=== PATIENT | female | born 1980 | race Caucasian/White ===

== ENCOUNTER 2019-07-14 11:52 | Emergency (ER) | payer SELFPAY ==
[2019-07-14] MEDS ORDERED: Ondansetron 4 MG/2 ML SDV IVPUSH ONE (12:15)
[2019-07-14] MEDS ORDERED: HYDROmorphone 1 MG/ML Syringe IVPUSH ONE (12:15)
[2019-07-14] MEDS ORDERED: Dextrose 5%-0.9% NaCl 1,000 ML IV SCH (12:15)
--- NOTE | 2019-07-14 12:20 | EDM.PDOC ---
ED HPI GENERAL MEDICAL PROBLEM - General Chief Complaint: ENT Problem Stated Complaint: EAR PAIN AND PRESSURE Time Seen by Provider: 07/14/19 12:15 Source of Information: Reports: Patient History Limitations: Reports: No Limitations - History of Present Illness INITIAL COMMENTS - FREE TEXT/NARRATIVE: 39-year-old female presents to the ED with severe right ear pain. She reports that she had 4 sets of tubes as a child. 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 She's had a portion of her mastoid bone removed as well. She's been having pain in the right ear for about 5 days. At work this morning when she leaned over she felt a pop and some serous purulent drainage foul-smelling come from the right ear. HEENT is now radiating into the mastoid process preauricular area and down the right sagrario-face along her mandible and inferior to her right eye. It also is painful when she clenches her teeth. Last surgery on her ear was in 2010. No problems on the left side. Onset: Sudden (Sudden worsening of the pain this morning with a pop sensation in her right eardrum or ear and then purulent foul-smelling drainage from the right ear.), Gradual (Right ear pain pressure for the last 5 days and tolerating Motrin and Tylenol with control.) Onset Date: 07/09/19 Duration: Day(s):, Constant, Getting Worse Location: Reports: Face (Right ear pain right) Quality: Reports: Ache ( pre-and postauricular pain radiating into the right sagrario-face.), Throbbing, Other (Associated vertigo feels like she is on a boat in the water a motion sickness) Severity: Severe (Current pain 8 out of 10. Such with nausea) Improves with: Reports: None Worsens with: Reports: Movement Context: Reports: Other (Chronic problems with right ear pain and recurrent cholesteatomas.). Denies: Activity, Exercise, Lifting, Sick Contact, Trauma Associated Symptoms: Reports: Headaches, Loss of Appetite, Nausea/Vomiting, Other (Vertigo symptoms). 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 (Motrin not helping today.) Right Ear Pain Score (Numeric/FACES): 9 - Related Data Allergies Allergy/AdvReac Type Severity Reaction Status Date / Time ketorolac [From Toradol] Allergy Hives Verified 07/14/19 12:04 metoclopramide [From Reglan] Allergy Anxiety Verified 07/14/19 12:04 morphine Allergy Itching Verified 07/14/19 12:04 prochlorperazine Allergy Hives Verified 07/14/19 12:04 [From Compazine] Home Meds: Home Meds Ciprofloxacin HCl [Cipro] 500 mg PO BID #20 tablet 07/14/19 [Rx] Citalopram Hydrobromide [Celexa] 20 mg PO DAILY 07/14/19 [History] Neomyc/Colist/Hydrocort/Thonzn [Cortisporin-Tc Ear Suspension] 10 ml OT ASDIRECTED #1 bottle 07/14/19 [Rx] oxyCODONE HCl/Acetaminophen [Percocet 5-325 mg Tablet] 1 - 2 each PO Q4H PRN # 20 tablet 07/14/19 [Rx] Past Medical History HEENT History: Reports: Otitis Media (Recurrent otitis media as a child requiring 4 sets of tympanostomy tubes. Has developed complications with a cholesteatoma formation or multiple cholesteatomas and has had 11 separate surgeries to try and resect cholesteatomas. Last surgery was in 2010. 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 Harsh vertigo symptoms related to surgery on the right ear and cholesteatoma invasion of the cochlea.) Psychiatric History: Reports: Depression - Past Surgical History HEENT Surgical History: Reports: Myringotomy w Tube(s) Other HEENT Surgeries/Procedures: cholesteatoma has had 11 surgeries Social & Family History - Tobacco Use Smoking Status *Q: Former Smoker Used Tobacco, but Quit: Yes Month/Year Tobacco Last Used: 2017 - Caffeine Use Caffeine Use: Reports: None - Recreational Drug Use Recreational Drug Use: No - Living Situation & Occupation Occupation: Employed ED ROS ENT - Review of Systems Review Of Systems: See Below Constitutional: Reports: Decreased Appetite. Denies: Fever, Chills, Malaise, Weakness, Fatigue, Weight Loss HEENT: Reports: Ear Discharge (Severe right ear pain both pre-and postauricular and to touch her ear lobe. Urged from the ear this morning foul-smelling), Ear Pain Respiratory: Reports: No Symptoms Cardiovascular: Reports: No Symptoms Endocrine: Reports: Fatigue GI/Abdominal: Reports: Nausea (Due to vertigo symptoms.) Musculoskeletal: Reports: No Symptoms Skin: Reports: No Symptoms Neurological: Reports: Dizziness (Vertigo symptoms associated with the right ear pain this morning.) Psychiatric: Reports: No Symptoms Hematologic/Lymphatic: Reports: No Symptoms Immunologic: Reports: No Symptoms ED EXAM, ENT - Physical Exam Exam: See Below Exam Limited By: No Limitations General Appearance: Alert, WD/WN, Moderate Distress, Other (Vital signs are all stable. BP is 10/27/68.) Eye Exam: Bilateral Eye: Normal Inspection (No nystagmus.) Ears: Other (Examination was confined to her right ear. Is exquisitely tender to touch and to tug on the earlobe to open it up so that I could see portions of the tympanic membrane. I could see approximate 50% of the tympanic membrane which appeared to be looking normal. Was no blood or obvious fluid in the ear canal. Obvious swelling of the floor and anterior wall of the canal. She has had multiple surgical scars posterior to the right ear and deformity of the right ear due to surgeries. Pain limits ability to visualize the entire tympanic membrane.) Mouth/Throat: Normal Inspection, Normal Gums, Normal Lips, Other (No signs of any dental infection. Does have marked pain on palpation of the right temporomandibular joint.) Head: Atraumatic, Normocephalic, Other (Has obvious deformity of her right ear I Fanny flower like ear from extensive scarring. Significant pain to palpation over the mastoid process and over the temporomandibular joint. No pre-or postauricular adenopathy appreciated.) Neck: Normal Inspection, Supple, Non-Tender, Full Range of Motion. No: Lymphadenopathy (L) Respiratory/Chest: No Respiratory Distress, Lungs Clear, Normal Breath Sounds, No Accessory Muscle Use Cardiovascular: Normal Peripheral Pulses, Regular Rate, Rhythm, No Edema, No Gallop, No Murmur, No Rub Course - Vital Signs Last Recorded V/S: Last Vital Signs Temp 36.7 C 07/14/19 12:05 Pulse 82 07/14/19 12:05 Resp 14 07/14/19 12:05 BP 107/69 07/14/19 12:05 Pulse Ox 98 07/14/19 12:05 - Orders/Labs/Meds Orders: Active Orders 24 hr Category Date Time Status Dextrose 5%-0.9% NaCl [Dextrose 5%-Normal Saline] 1,000 Med 07/14/19 12:15 Active ml IV ASDIRECTED Medication Orders Dextrose/Sodium Chloride (Dextrose 5%-Normal Saline) 1,000 mls @ 999 mls/hr IV ASDIRECTED DEDRA Last Admin: 07/14/19 12:29 Dose: 999 mls/hr Meds: Medications Generic Name Dose Route Start Last Admin Trade Name Freq PRN Reason Stop Dose Admin Dextrose/Sodium Chloride 1,000 mls @ 999 mls/hr 07/14/19 12:15 07/14/19 12:29 Dextrose 5%-Normal Saline IV 999 mls/hr ASDIRECTED DEDRA Administration Discontinued Medications Generic Name Dose Route Start Last Admin Trade Name Freq PRN Reason Stop Dose Admin Hydromorphone HCl 1 mg 07/14/19 12:15 07/14/19 12:30 Dilaudid IVPUSH 07/14/19 12:16 1 mg ONETIME ONE Administration Ondansetron HCl 4 mg 07/14/19 12:15 07/14/19 12:29 Zofran IVPUSH 07/14/19 12:16 4 mg ONETIME ONE Administration - Radiology Interpretation Free Text/Narrative:: 39-year-old female presents the emergency room with severe right ear pain and she's been having pain in the right ear for about 5 days controlled with Tylenol and Motrin. This morning while at work it seemed to pop and release a discharge that was foul-smelling. No blood noted. Her hearing is poor and aside from multiple previous surgeries. She's had for tympanostomy tube insertions as a child and then complicated by multiple cholesteatomas with 11 different surgeries because of this. She presents with an exquisitely tender ear canal with swelling of the floor and anterior wall which partially obscures the tympanic membrane which appears to be normal on limited exam. Due to pain referred to the mastoid and right sagrario-face and going to have CT of her head performed so that I can visualize the mastoid process. Shouldn't is nauseated this point time doesn't believe she can keep down oral meds. IV will be started D5 normal saline at open. Given Dilaudid 1 mg IV and Zofran 4 mg IV. There was nothing to culture in the right ear canal. - Re-Assessments/Exams Free Text/Narrative Re-Assessment/Exam: 07/14/19 12:52 CT of the head has been completed. There is no intracranial mass or midline shift. She has had a previous right-sided mastoidectomy and the bone has been resected overlying the mastoid process ie. bone window. Most of the bone has been resected from the inside aspect of the mastoid process presumably due to infection. As infection are evident in the mastoid process. There is a soft tissue density in the middle ear canal on the right side. Unclear what this represents. It is an atypical area does not represent swelling. At this point time she appears to have acute external otitis infection. Treatment will be with Cortisporin eardrops. 2 drops to the right ear canal every 2 hours for the next 36 hours and then 2 drops every 4 hours for 8 more days to clear up infection. Percocet tabs 5/3/25 milligrams one or 2 every 4-6 hours for pain relief until the inflammation swelling starts to resolve which will look to be 2-3 days. 16 tablets provided. She will also be placed on Cipro 500 mg twice daily for the next 10 days to clear up any potential pseudomonas infection in the ear canal. She is weaning off her citalopram at present and therefore should not represent a contraindication. No up at [facility]. Referred her to Dr. Jennie Barbour. Full bladder she can set up appointment with visiting ear nose and throat surgeons to come up from [place]. Departure - Departure Time of Disposition: 13:23 Disposition: Home, Self-Care 01 Condition: Fair Clinical Impression: Otitis externa Qualifiers: Otitis externa type: unspecified type Chronicity: acute Laterality: right Qualified Code(s): H60.501 - Unspecified acute noninfective otitis externa, right ear - Discharge Information *PRESCRIPTION DRUG MONITORING PROGRAM REVIEWED*: Not Applicable *COPY OF PRESCRIPTION DRUG MONITORING REPORT IN PATIENT JOSE DAVID: Not Applicable Prescriptions: Ciprofloxacin HCl [Cipro] 500 mg PO BID #20 tablet Neomyc/Colist/Hydrocort/Thonzn [Cortisporin-Tc Ear Suspension] 10 ml OT ASDIRECTED #1 bottle oxyCODONE HCl/Acetaminophen [Percocet 5-325 mg Tablet] 1 - 2 each PO Q4H PRN # 20 tablet PRN Reason: pain relief. Instructions: Ear Drops, Adult Referrals: PCP,None [Primary Care Provider] - Forms: ED Department Discharge, ED Return to Work/School Form Additional Instructions: Evaluation the emergency room today in regards to 5 day history of right ear pain gradually worsening. Intensified this morning with a feeling of drainage from the right ear and increased pain throughout the right side of your face and posterior and anterior to the right ear. No problems with the right ear over the years with recurrence of cholesteatoma. I could only see about 50% of the tympanic membrane today and it appears normal. There is no doubt that the anterior wall in the floor of the ear canal are markedly inflamed I otitis externa. Of the area reveals no signs of infection in the mastoid process or the middle ear cavity. You're given initial dose of pain medication in the ED with Dilaudid 1 mg and Zofran 4 mg for nausea relief. Treatment at home is Cortisporin TC optic drops 2 drops to the right ear every 2 hours for the next 36 hours and then 2 drops to the right ear every 4 hours for 8 days to clear up infection in the ear canal. Should lie on her left side for about 5 minutes after placing the drops in the ear. Pain medication is to be Percocet tabs 5/ 325 mg one or 2 every 4-6 hours needed for pain relief until the inflammation and infection settles down. Antibiotic is to be Cipro 500 mg twice daily for the next 10 days to clear up infection as well. Suggest taking her citalopram medication every other day instead of daily while on the Cipro medication possible drug interaction. Expect marked improvement over the next 48-72 hours. Try keep all water. When showering. Suggest cutting back and in the ear and canal in and pull it out as soon as the shower is done. Follow-up is advised with her personal care provider or ear nose and throat doctor in 10-12 days time. At this time since I cannot visualize the tympanic membrane totally a cannot 100% rule out recurrence of cholesteatoma although this is certainly not evident on CT exam today. Suggest arranging follow-up with primary care provider. Suggest Dr. Jennie Barbour--phone number to make an appointment is [phone]. - My Orders Last 24 Hours: My Active Orders 07/14/19 12:15 Dextrose 5%-0.9% NaCl [Dextrose 5%-Normal Saline] 1,000 ml IV ASDIRECTED - Assessment/Plan Last 24 Hours: My Active Orders 07/14/19 12:15 Dextrose 5%-0.9% NaCl [Dextrose 5%-Normal Saline] 1,000 ml IV ASDIRECTED
--- NOTE | 2019-07-14 13:10 | CT ---
Head CT Technique: Multiple axial sections through the brain were obtained. Intravenous contrast was not utilized. Comparison: No prior intracranial imaging is available. Findings: Ventricles along with basal cisterns and sulci over the convexities are within normal limits for the patient's age. No abnormal parenchymal densities are seen. No evidence of intracranial hemorrhage. No midline shift or mass effect is seen. Bone window settings were reviewed which show previous mastoid surgery on the right side. Left mastoid sinus is clear. Visualized paranasal sinuses are clear. No acute calvarial abnormality is seen. Soft tissue material within the right external auditory canal is seen most likely due to normal cerumen. Impression: 1. Nothing acute is appreciated on noncontrast head CT exam. 2. Findings of previous right-sided mastoid surgery. Presumed cerumen within the right external auditory canal. Please correlate. Diagnostic code #2
== END 2019-07-14 13:30 | disposition home or self-care (01) ==
LOC: JD.ED 11:52
DX: H60.501 Unspecified acute noninfective otitis externa, right ear (principal); F32.9 Major depressive disorder, single episode, unspecified; Z88.8 Allergy status to other drugs, medicaments and biological substances; Z88.5 Allergy status to narcotic agent; Z79.899 Other long term (current) drug therapy; Z87.891 Personal history of nicotine dependence
CPT/HCPCS: 70450; 96361; 96374; 96375; 99283; J1170; J2405; J7042

== ENCOUNTER 2019-08-20 07:58 | Emergency (ER) | payer SELFPAY ==
[2019-08-20] MEDS ORDERED: FLU Vacc QS2019-20(6MOS+)/PF 60 MCG/0.5 ML SYRINGE IM ONE (08:30)
[2019-08-20] MEDS ORDERED: Ondansetron 4 MG Tab.DIS PO ONE (08:32)
[2019-08-20] MEDS ORDERED: Dexamethasone/Tobramycin 0.1-0.3% Ophth Susp 5 ML Bottle EARRT ONE ×2 (08:32→09:00)
[2019-08-20] MEDS ORDERED: Acetaminophen/oxyCODONE 325-5 MG Tab PO ONE (08:32)
--- NOTE | 2019-08-20 08:32 | EDM.PDOC ---
<Carroll Salinas - Last Filed: 08/20/19 09:12> ED HPI GENERAL MEDICAL PROBLEM - General Chief Complaint: ENT Problem Stated Complaint: SHARP PAIN (FACE),RASH ALL OVER BODY Time Seen by Provider: 08/20/19 08:45 - History of Present Illness INITIAL COMMENTS - FREE TEXT/NARRATIVE: Patient is a 39 year old uninsured female with past history positive for cholesteatoma with multiple surgeries and recent external ear infection managed with ciprofloxacin and cortisporin ear drops on 07/14/19 who presents today for continued right jaw and ear pain. She notes that the pain is worse when biting down, and radiates to the nose and collar bone. At baseline, it is a 8/10, and with chewing it is a "12/10." She describes it as burning, with associated pressure in her eye socket. 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 She also reports daily migraines with nausea and vomiting with photophobia and phonophobia. She has been taking up to 1200 mg of Ibuprofen 3 times a day for her migraines. This does slightly improve her jaw pain as well. She is able to eat soft foods and feels like her appetite is good. She does believe that her pain is getting worse. She has not noticed any draining and reports that the previous foul odor is improved. She denies any changes in her mouth or pain while brushing her teeth, fever or signs of URI. She reports that she has approximately 10% of her hearing in the right ear following her surgeries. She also notes development of a rash mainly on her trunk that appeared following completion of her ciprofloxacin. This rash is puritic and mildly painful. She does not report that it is spreading, although does state that it is "darkening." She also did recently use a tanning bed, and does say that she sometimes gets a rash upon sun exposure, but that it never lasts this long. She has attempted to use hydrocortisone cream, with some improvement. The patient is currently uninsured, and reports that she does not have money for medications. She reports that she did not see ENT as referred after last visit. Patient does report completing the ciprofloxacin, but it is unclear if she was able to obtain the cortisporin otic suspension due to financial constraints. The patient does report that she is planning on reapplying for Medicaid. Onset: Gradual Duration: Week(s): Location: Reports: Head, Face, Radiates to (Nose and collar bone) Quality: Reports: Burning Severity: Severe Improves with: Reports: Medication (Ibuprofen 1200 mg # times a day ) Worsens with: Reports: Eating Associated Symptoms: Reports: Headaches. Denies: Cough, Fever/Chills, Loss of Appetite Right Ear Pain Score (Numeric/FACES): 8 - Related Data Allergies Allergy/AdvReac Type Severity Reaction Status Date / Time ketorolac [From Toradol] Allergy Hives Verified 08/20/19 08:10 metoclopramide [From Reglan] Allergy Anxiety Verified 08/20/19 08:10 morphine Allergy Itching Verified 08/20/19 08:10 prochlorperazine Allergy Hives Verified 08/20/19 08:10 [From Compazine] Home Meds: Home Meds Doxycycline [Vibramycin] 100 mg PO BID #28 cap 08/20/19 [Rx] oxyCODONE HCl/Acetaminophen [Percocet 5-325 mg Tablet] 1 - 2 each PO Q4H PRN # 20 tablet 08/20/19 [Rx] predniSONE 20 mg PO BID #10 tab 08/20/19 [Rx] Past Medical History HEENT History: Reports: Otitis Media, Other (See Below) (Cholesteatoma treated with multiple (11) surgeries, including mastoidectomy. 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: Psychiatric History: Reports: Depression Oncologic (Cancer) History: Reports: Cervix - Past Surgical History HEENT Surgical History: Reports: Myringotomy w Tube(s) Other HEENT Surgeries/Procedures: cholesteatoma has had 11 surgeries Female Surgical History: Reports: Tubal Ligation Social & Family History - Family History Family Medical History: Noncontributory - Tobacco Use Smoking Status *Q: Never Smoker Second Hand Smoke Exposure: No - Caffeine Use Caffeine Use: Reports: Coffee - Recreational Drug Use Recreational Drug Use: No - Living Situation & Occupation Occupation: Employed ED ROS ENT - Review of Systems Review Of Systems: See Below Constitutional: Denies: Fever, Decreased Appetite HEENT: Reports: Ear Pain, Nose Pain. Denies: Ear Discharge, Rhinitis, Throat Pain Respiratory: Denies: Shortness of Breath, Cough Cardiovascular: Denies: Chest Pain GI/Abdominal: Reports: Nausea, Vomiting Skin: Reports: Rash Neurological: Reports: Headache ED EXAM, ENT - Physical Exam Exam: See Below General Appearance: Alert, WD/WN, Other (Vitals at bedside: Temp 97.6, Pulse 71 , Respirations 18, BP 108/78, Pulse Ox 98% on room air ) Ears: Auricular Tenderness, Canal Swelling Nose: Normal Inspection Mouth/Throat: Normal Inspection, Normal Gums, Normal Lips, Normal Oropharynx, Normal Teeth Head: Atraumatic, Normocephalic Neck: Normal Inspection Respiratory/Chest: No Respiratory Distress, No Accessory Muscle Use Skin: Rash (Erythematous macular rash on the anterior trunk) Fron/Back Body Diagram: 1 - Macular erythematous rash Course - Vital Signs Last Recorded V/S: Last Vital Signs Temp 36.4 C 08/20/19 08:05 Pulse 71 08/20/19 08:05 Resp 18 08/20/19 08:05 BP 108/78 08/20/19 08:05 Pulse Ox 98 08/20/19 08:05 - Orders/Labs/Meds Orders: Active Orders 24 hr Category Date Time Status Influenza Vaccine Charge [RC] .DISCHARGE Care 08/20/19 08:15 Active Meds: Medications Discontinued Medications Generic Name Dose Route Start Last Admin Trade Name Maria Esther PRN Reason Stop Dose Admin Dexamethasone 12 mg 08/20/19 08:52 08/20/19 09:14 Dexamethasone PO 08/20/19 08:53 12 mg ONETIME ONE Administration Influenza Virus Vaccine 1 each 08/20/19 08:14 Pharmacy To Dose - Influenza Vaccine IM 08/20/19 08:15 ONETIME ONE Influenza Virus Vaccine 60 mcg 08/20/19 08:30 08/20/19 08:49 Fluzone Quad [id number] Syringe IM 08/20/19 08:31 60 mcg .ONCE ONE Administration Ondansetron HCl 4 mg 08/20/19 08:32 08/20/19 08:48 Zofran Odt PO 08/20/19 08:33 4 mg ONETIME ONE Administration Oxycodone/Acetaminophen 2 tab 08/20/19 08:32 08/20/19 08:48 Percocet 325-5 Mg PO 08/20/19 08:33 2 tab ONETIME ONE Administration Tobramycin/Dexamethasone 0 ml 08/20/19 09:00 08/20/19 09:03 Tobradex Ophth Susp EARRT 08/20/19 09:01 2 drop ONETIME ONE Administration Departure - Departure Disposition: Home, Self-Care 01 Clinical Impression: Drug eruption Diffuse otitis externa, right ear Qualifiers: Chronicity: acute Qualified Code(s): H60.311 - Diffuse otitis externa, right ear - Discharge Information Prescriptions: Doxycycline [Vibramycin] 100 mg PO BID #28 cap oxyCODONE HCl/Acetaminophen [Percocet 5-325 mg Tablet] 1 - 2 each PO Q4H PRN # 20 tablet PRN Reason: pain relief. predniSONE 20 mg PO BID #10 tab Instructions: Ear Drops, Adult, [id number] Referrals: PCP,None [Primary Care Provider] - Forms: ED Department Discharge Additional Instructions: Evaluation the emergency room this morning due to persistent right otitis externa of your right ear canal. Luckily swollen and markedly tender to palpation and examination. Referred pain to the right sagrario-face and down along the mandible to the right neck. Also appreciate a rash on the abdomen and lower chest that is developed over the last couple days while you were taking Cipro antibiotic. This is a drug eruption 8 indicating that you are now allergic to Cipro and similar medications. You are not to take this medication ever again. He will be started on TobraDex eardrops 2 drops to the right ear every 3 hours for the next 2 days then 4 times daily until the bottle is gone. Pain medication Percocet 5/3/25 milligram tabs one or 2 every 4-6 hours needed for pain relief. Prednisone 20 mg with breakfast and supper for the next 5 days to reduce inflammation both in the ear canal and to improve your rash or prevent the rash from getting worse. The first tablet to be taken at suppertime tonight. No antibiotic is doxycycline 100 mg twice daily for the next 14 days to help clear up ear infection. Up with ear nose and throat surgeon as soon as able. - My Orders Last 24 Hours: My Active Orders 08/20/19 08:15 Influenza Vaccine Charge [RC] .DISCHARGE - Assessment/Plan Last 24 Hours: My Active Orders 08/20/19 08:15 Influenza Vaccine Charge [RC] .DISCHARGE <Jerson Barron - Last Filed: 08/20/19 09:44> Course - Radiology Interpretation Free Text/Narrative:: 39-year-old female presents to the ED with severe right sided hemifacial pain and right ear pain. She has a history of chronic problems with ear pain secondary to recurrent otitis medias youngster requiring tympanostomy tubes at least 4 times. Subsequently she has developed cholesteatoma was in both ears right is persistent. She's lost most of her hearing. Of an separate surgeries on the ear for partial removal of cholesteatoma which keeps growing back. She currently doesn't have any insurance has not been able to follow-up with ear nose and throat surgeon. I had seen her almost 3 and half weeks ago with a similar complaint and CT at that time revealed no infection in the mastoid which is been partially resected. On exam today she has a marked otitis externa mostly involving the anterior and floor of the ear canal. Is putting pressure on the temporomandibular joint making it painful to chew her clench her teeth and pain radiating into the records the right maxillary sinus and nose and along the mandible along her right neck. I suspect she did not fill prescription for steroid eardrops due to the cost on last assessment. Given TobraDex ophthalmic drops to use in her right ear 5 Mill bottle. 2 drops to the right ear every 3 hours for 2 days then 4 times daily until the bottle is gone. Given initial dose of dexamethasone 12 mg in the ED to reduce pain and swelling and also to help with her drug eruption on her abdomen. Prednisone 20 mg twice daily for 5 days but distant supper to help reduce pain and inflammation and bring the rash under control. Percocet tabs 5/3/25 milligrams one or 2 every 4- 6 hours needed for pain relief 20 tablets provided. Antibiotic be doxycycline 100 mg twice daily for the next 14 days to clear up infection in the ear canal as well. She will follow-up with ear nose and throat surgeon when she gets her insurance. She was advised never to use Cipro or similar medications in the future. Departure - Departure Time of Disposition: 09:14 Condition: Fair - Discharge Information *PRESCRIPTION DRUG MONITORING PROGRAM REVIEWED*: No *COPY OF PRESCRIPTION DRUG MONITORING REPORT IN PATIENT JOSE DAVID: No
[2019-08-20] MEDS ORDERED: Dexamethasone 4 MG Tab PO ONE (08:52)
== END 2019-08-20 09:28 | disposition home or self-care (01) ==
LOC: JD.ED 07:58
DX: L27.1 Localized skin eruption due to drugs and medicaments taken internally (principal); T36.8X5A Adverse effect of other systemic antibiotics, initial encounter; H60.311 Diffuse otitis externa, right ear; Z88.8 Allergy status to other drugs, medicaments and biological substances; Z88.6 Allergy status to analgesic agent
CPT/HCPCS: 90686; 99282-25; A9270-GY; G0008; J8540

== ENCOUNTER 2020-03-09 17:18 | Emergency (ER) | payer MEDICAID ==
[2020-03-09] MEDS ORDERED: HYDROmorphone 0.5 MG/0.5 ML Syringe IVPUSH ONE ×2 (18:49→20:34)
[2020-03-09] MEDS ORDERED: Ondansetron 4 MG/2 ML SDV IVPUSH ONE (18:49)
[2020-03-09] MEDS ORDERED: Sodium Chloride 0.9% 1,000 ML IV SCH (19:00)
[2020-03-09] MEDS ORDERED: diphenhydrAMINE 50 MG/ML SDV IVPUSH ONE (19:14)
--- NOTE | 2020-03-09 19:25 | EDM.PDOC ---
ED HPI GENERAL MEDICAL PROBLEM - General Chief Complaint: Lower Extremity Injury/Pain Stated Complaint: BACK PAIN AFTER CHIROPRACTOR Time Seen by Provider: 03/09/20 18:21 - History of Present Illness INITIAL COMMENTS - FREE TEXT/NARRATIVE: Patient is a 39-year-old female who presents to the emergency department with complaints of low back pain radiating down her left leg, as well as a migraine headache. She states that she has been dealing with chronic migraines for many years and over the course of last 3 months she has started going to a chiropractor to help treat her migraines. Today she woke up with a migraine. She took 800 mg of ibuprofen prior to going to the chiropractor at 130 today. The chiropractor adjusted her neck and low back. She states when he adjusted her low back, he crossed her left leg over her body and pushing with his weight. When that happened she felt a pop and initially experienced a small amount of pain. She went home, laid down and ice the area. Upon waking the pain had worsened significantly. She states it is painful for her to bear weight on her left leg. Pain to the left leg is not constant, however movement causes a sharp shooting pain down the anterior and posterior portion of her pain. She denies any bowel or bladder dysfunction associated with this. She does also continue to have a migraine headache. She took another dose of 800 mg of ibuprofen at approximately 4:00 this afternoon. She is not on prescription medications for her migraines. Left Leg Pain Score (Numeric/FACES): 9 - Related Data Allergies Allergy/AdvReac Type Severity Reaction Status Date / Time ciprofloxacin [From Cipro] Allergy Severe Rash Verified 03/09/20 18:19 ketorolac [From Toradol] Allergy Severe Hives Verified 03/09/20 18:19 prochlorperazine Allergy Severe Hives Verified 03/09/20 18:19 [From Compazine] metoclopramide [From Reglan] AdvReac Severe Anxiety Verified 03/09/20 18:19 Home Meds: Home Meds Ibuprofen 800 mg PO TID PRN 10/21/19 [History] Acetaminophen/HYDROcodone [Stanton 325-5 MG] 1 tab PO Q4H PRN #10 tablet 03/09/20 [Rx] Citalopram Hydrobromide [Celexa] 20 mg PO DAILY 03/09/20 [History] Cyclobenzaprine [Flexeril] 5 mg PO Q8H PRN #10 tab 03/09/20 [Rx] Mv-Mn/Folic/Jas/Vit K/B Comp,C [Women's Daily Pack] 1 each PO DAILY 03/09/20 [ History] Past Medical History HEENT History: Reports: Otitis Media, Other (See Below) Cardiovascular History: Reports: None Respiratory History: Reports: None 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: Musculoskeletal History: Reports: None Neurological History: Reports: Headaches, Chronic, Migraines Psychiatric History: Reports: Depression Endocrine/Metabolic History: Reports: None Hematologic History: Reports: None Immunologic History: Reports: None Oncologic (Cancer) History: Reports: Cervix Dermatologic History: Reports: None - Infectious Disease History Infectious Disease History: Reports: Chicken Pox - Past Surgical History HEENT Surgical History: Reports: Myringotomy w Tube(s) Other HEENT Surgeries/Procedures: cholesteatoma has had 11 surgeries GI Surgical History: Reports: Cholecystectomy Female Surgical History: Reports: Tubal Ligation Social & Family History - Family History Family Medical History: Noncontributory - Tobacco Use Smoking Status *Q: Never Smoker - Caffeine Use Caffeine Use: Reports: Coffee, Soda - Recreational Drug Use Recreational Drug Use: No - Living Situation & Occupation Occupation: Employed Review of Systems - Review of Systems Review Of Systems: Comprehensive ROS is negative, except as noted in HPI. ED EXAM, GENERAL - Physical Exam Exam: See Below Exam Limited By: No Limitations General Appearance: Alert, WD/WN, Mild Distress Respiratory/Chest: No Respiratory Distress, Lungs Clear, Normal Breath Sounds, No Accessory Muscle Use, Chest Non-Tender Cardiovascular: Normal Peripheral Pulses, Regular Rate, Rhythm, No Edema, No Gallop, No JVD, No Murmur, No Rub Back Exam: Normal Inspection, Vertebral Tenderness (L3-L5), Other (Significant tenderness over the SI joint.) Extremities: Normal Inspection, Normal Range of Motion, Non-Tender, Normal Capillary Refill, No Pedal Edema Neurological: Alert, Oriented, CN II-XII Intact, Normal Cognition, Normal Gait, Normal Reflexes, No Motor/Sensory Deficits Psychiatric: Normal Affect, Normal Mood Skin Exam: Warm, Dry, Intact, Normal Color, No Rash Course - Vital Signs Last Recorded V/S: Last Vital Signs Temp 97.7 F 03/09/20 18:13 Pulse 81 03/09/20 18:13 Resp 16 03/09/20 18:13 BP 95/70 03/09/20 18:13 Pulse Ox 96 03/09/20 18:13 - Orders/Labs/Meds Meds: Medications Discontinued Medications Generic Name Dose Route Start Last Admin Trade Name Pierceq PRN Reason Stop Dose Admin Acetaminophen 975 mg 03/09/20 20:52 03/09/20 21:02 Tylenol PO 03/09/20 20:53 975 mg NOW ONE Administration Cyclobenzaprine HCl 10 mg 03/09/20 20:46 03/09/20 21:02 Flexeril PO 03/09/20 20:47 10 mg ONETIME ONE Administration Diphenhydramine HCl 25 mg 03/09/20 19:14 03/09/20 19:38 Benadryl IVPUSH 03/09/20 19:15 25 mg ONETIME ONE Administration Hydromorphone HCl 0.5 mg 03/09/20 18:49 03/09/20 19:31 Dilaudid IVPUSH 03/09/20 18:50 0.5 mg ONETIME ONE Administration Hydromorphone HCl 0.5 mg 03/09/20 20:34 Dilaudid IVPUSH 03/09/20 20:35 ONETIME ONE Hydromorphone HCl 1 mg 03/09/20 20:45 Dilaudid IM 03/09/20 20:46 ONETIME ONE Hydromorphone HCl 0.5 mg 03/09/20 20:46 03/09/20 21:01 Dilaudid IM 03/09/20 20:47 0.5 mg ONETIME ONE Administration Sodium Chloride 1,000 mls @ 999 mls/hr 03/09/20 19:00 03/09/20 19:31 Normal Saline IV 999 mls/hr ASDIRECTED DEDRA Administration Ondansetron HCl 4 mg 03/09/20 18:49 03/09/20 19:31 Zofran IVPUSH 03/09/20 18:50 4 mg ONETIME ONE Administration - Re-Assessments/Exams Free Text/Narrative Re-Assessment/Exam: We will do an x-ray of her lumbar spine and sacroiliac joint. I have ordered a 1 L bolus of NS, Zofran for nausea, Benadryl, and Dilaudid 0.5 mg. 03/09/202034 X-rays were negative for any acute abnormalities. Patient's IV infiltrated. She does continue to have a headache and leg pain but it has improved slightly. She would like to go home and rest. I will give her Dilaudid 0.5 mg IM, Flexeril 10 mg p.o., and Tylenol 975 mg p.o. We will discharge her home with a prescription for Flexeril and Stanton. Discharge instructions as documented. Departure - Departure Time of Disposition: 20:52 Disposition: Home, Self-Care 01 Condition: Good Clinical Impression: Migraine Qualifiers: Migraine type: unspecified Status migrainosus presence: without status migrainosus Intractability: not intractable Qualified Code(s): G43.909 - Migraine, unspecified, not intractable, without status migrainosus Lumbar strain Qualifiers: Encounter type: initial encounter Qualified Code(s): S39.012A - Strain of muscle, fascia and tendon of lower back, initial encounter - Discharge Information *PRESCRIPTION DRUG MONITORING PROGRAM REVIEWED*: Yes *COPY OF PRESCRIPTION DRUG MONITORING REPORT IN PATIENT JOSE DAVID: No Prescriptions: Acetaminophen/HYDROcodone [Stanton 325-5 MG] 1 tab PO Q4H PRN #10 tablet PRN Reason: Pain Cyclobenzaprine [Flexeril] 5 mg PO Q8H PRN #10 tab PRN Reason: Muscle Spasm Instructions: Migraine Headache, [id number], Lumbosacral Strain Referrals: Alissa Rutledge NP [Primary Care Provider] - Forms: ED Department Discharge, ED Return to Work/School Form Additional Instructions: You were seen in the emergency department tonight for a migraine headache and low back pain radiating down your left leg after a chiropractor adjustment today. X-rays were completed of your lumbar spine as well as your sacroiliac joint and found to be normal overall with the exception of some degenerative changes could consistent with osteoarthritis. While in the emergency department you received Dilaudid for pain, Benadryl, and Zofran for nausea. You also received an injection of Dilaudid, Tylenol by mouth, and Flexeril which is a muscle relaxer. Recommend that you go home and rest in a dark, quiet room. You may alternate ice and heat to area of discomfort in your low back. Recommend that you use [id number] ibuprofen and Tylenol as needed for discomfort. For pain not relieved by these measures, a prescription for Stanton has been sent to [place] [facility] on . In addition, a prescription for Flexeril which is a muscle relaxer has also been sent. A note has been provided off from work for you for and Saturday. If you continue to experience pain to the area, I recommend that you follow-up with your primary care provider as further imaging studies may be warranted. If you experience any worsening symptoms, please not hesitate to return to the emergency department. Sepsis Event Note - Evaluation Sepsis Screening Result: No Definite Risk - Focused Exam Date Exam was Performed: 03/10/20 Time Exam was Performed: 12:13
--- NOTE | 2020-03-09 20:40 | CR ---
Lumbar spine: AP and lateral views lumbar spine were obtained. Comparison: No previous lumbar spine imaging. Vertebral body heights and disc spaces are maintained. Mild scattered endplate osteophytes are seen. Pedicles as well as visualized transverse and spinous processes are intact. No subluxation or fracture is seen. Surgical clips are noted from prior cholecystectomy. Impression: 1. Slight degenerative change. 2. Nothing acute is seen. Diagnostic code #2 This report was dictated in MDT
--- NOTE | 2020-03-09 20:42 | CR ---
Sacroiliac joints: AP and oblique views of the sacroiliac joints were obtained. Comparison: No previous study. Sacroiliac joints appear within normal limits. No sacroiliac joint narrowing is seen. No surrounding osteolysis or osteoblastic change is seen. Slight degenerative change is noted within the left hip with small femoral osteophyte. Impression: 1. Slight degenerative change within the left hip. 2. Sacroiliac joints study is otherwise unremarkable. Diagnostic code #2 This report was dictated in MDT
[2020-03-09] MEDS ORDERED: HYDROmorphone 1 MG/ML Syringe IM ONE (20:45)
[2020-03-09] MEDS ORDERED: HYDROmorphone 0.5 MG/0.5 ML Syringe IM ONE (20:46)
[2020-03-09] MEDS ORDERED: Cyclobenzaprine 10 MG Tab PO ONE (20:46)
[2020-03-09] MEDS ORDERED: Acetaminophen 325 MG Tab PO ONE (20:52)
== END 2020-03-09 21:26 | disposition home or self-care (01) ==
LOC: JD.ED 17:18
DX: S39.012A Strain of muscle, fascia and tendon of lower back, initial encounter (principal); G43.009 Migraine without aura, not intractable, without status migrainosus; F32.9 Major depressive disorder, single episode, unspecified; Z88.1 Allergy status to other antibiotic agents; Z88.6 Allergy status to analgesic agent; Z88.8 Allergy status to other drugs, medicaments and biological substances; Z79.899 Other long term (current) drug therapy; X50.9XXA Other and unspecified overexertion or strenuous movements or postures, initial encounter
CPT/HCPCS: 72100; 72202; 96374; 96375; 96376; 99283; A9270; J1170; J1200; J2405; J7030

== ENCOUNTER 2020-04-25 08:47 | Emergency (ER) | payer MEDICAID ==
[2020-04-25] MEDS ORDERED: Promethazine 12.5 MG in Sodium Chloride 0.9% 50 ML IV ONE (09:15)
[2020-04-25] MEDS ORDERED: HYDROmorphone 0.5 MG/0.5 ML Syringe IVPUSH ONE ×2 (09:15→10:35)
[2020-04-25] MEDS ORDERED: Dextrose 5%-0.9% NaCl 1,000 ML IV SCH (09:15)
--- NOTE | 2020-04-25 09:20 | EDM.PDOC ---
ED HPI GENERAL MEDICAL PROBLEM - General Chief Complaint: Headache Stated Complaint: HEADACHE Time Seen by Provider: 04/25/20 09:04 Source of Information: Reports: Patient History Limitations: Reports: No Limitations - History of Present Illness INITIAL COMMENTS - FREE TEXT/NARRATIVE: 39-year-old female presents to the ED per ambulance after a near syncopal event at home while in the shower this morning. She woke up with a severe right hemicranial headache this morning which she rates as 9 out of 10. She felt this morning that her right arm was not clumsy and not working quite as well as should while putting on her make-up this morning. She feels numbness and tingling in her right upper extremity and mild weakness. Her balance is off because she has a vertigo quite severely for the last month. She is currently on drops for a right otitis externa and antibiotics as well for pain in the mastoid process. She has not had CT scan done. She has surgery on the right ear for cholesteatoma x1 and 4 sets of tubes. Current headache affects her eyesight. She felt that perhaps her right eyelid was a little droopier than normal this morning. She also felt her smile was not symmetrical. Is in the shower and started to feel quite ill and let herself down to the bottom of the shower gently did not fall. No seizure activity. When she stops moving her vertigo symptoms do go away. Stroke alert was called on this patient because of patient's presentation of symptoms as above. Onset: Today, Sudden Onset Date: 04/25/20 Onset Time: 08:35 Duration: Minutes: Location: Reports: Face ([place] her right eye was droopier than normal and her smile was asymmetrical.), Other (Very headache right hemicranial.) Quality: Reports: Ache, Throbbing Severity: Moderate (Headache right hemicranial head) Improves with: Reports: Rest Worsens with: Reports: Other (Vertigo symptoms are worse with movement of the head and neck.) Context: Denies: Activity, Exercise, Lifting, Sick Contact, Trauma Associated Symptoms: Reports: Loss of Appetite, Malaise, Nausea/Vomiting (0 with no vomiting.), Weakness. Denies: No Other Symptoms, Confusion, Chest Pain, Cough, cough w sputum, Diaphoresis, Fever/Chills, Headaches, Seizure, Shortness of Breath, Syncope Treatments [employer]: Reports: Other (see below) (None.) Right Headache Pain Score (Numeric/FACES): 8 - Related Data Allergies Allergy/AdvReac Type Severity Reaction Status Date / Time ciprofloxacin [From Cipro] Allergy Severe Rash Verified 04/25/20 09:45 ketorolac [From Toradol] Allergy Severe Hives Verified 04/25/20 09:45 prochlorperazine Allergy Severe Hives Verified 04/25/20 09:45 [From Compazine] metoclopramide [From Reglan] AdvReac Severe Anxiety Verified 04/25/20 09:45 Home Meds: Home Meds Ibuprofen 800 mg PO TID PRN 10/21/19 [History] Acetaminophen/HYDROcodone [[place] 325-5 MG] 1 tab PO Q4H PRN #10 tablet 03/09/20 [Rx] Citalopram Hydrobromide [Celexa] 20 mg PO DAILY 03/09/20 [History] Cyclobenzaprine [Flexeril] 5 mg PO Q8H PRN #10 tab 03/09/20 [Rx] Mv-Mn/Folic/Jas/Vit K/B Comp,C [Women's Daily Pack] 1 each PO DAILY 03/09/20 [History] oxyCODONE HCl/Acetaminophen [Percocet 5-325 mg Tablet] 1 - 2 each PO Q4H PRN #20 tablet 04/25/20 [Rx] Past Medical History HEENT History: Reports: Otitis Media, Other (See Below) Other HEENT History: Patient has had to have coldest stoma surgery on the right ear x2. She has had 4 sets of myringotomy tubes. Currently being treated for a right otitis externa with Cipro optic drops as well as oral antibiotic for infection. Lot of pain in the mastoid process on the right side. 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: Reports: Musculoskeletal History: Reports: None Neurological History: Reports: Headaches, Chronic, Migraines Psychiatric History: Reports: Depression Endocrine/Metabolic History: Reports: None Hematologic History: Reports: None Immunologic History: Reports: None Oncologic (Cancer) History: Reports: Cervix Dermatologic History: Reports: None - Infectious Disease History Infectious Disease History: Reports: Chicken Pox - Past Surgical History HEENT Surgical History: Reports: Myringotomy w Tube(s) Other HEENT Surgeries/Procedures: cholesteatoma has had 11 surgeries GI Surgical History: Reports: Cholecystectomy Female Surgical History: Reports: Tubal Ligation Social & Family History - Family History Family Medical History: Noncontributory - Caffeine Use Caffeine Use: Reports: Coffee, Soda - Living Situation & Occupation Living situation: Reports: Occupation: Employed ED ROS GENERAL - Review of Systems Review Of Systems: See Below Constitutional: Reports: Malaise, Weakness, Fatigue, Decreased Appetite. Denies: Fever, Chills, Weight Loss HEENT: Reports: Other (Concerning for mastoiditis. As well as oral antibiotics for suspected otitis media and pain in the mastoid process) Respiratory: Reports: No Symptoms Cardiovascular: Reports: Lightheadedness, Other Endocrine: Reports: Fatigue (To go symptoms.) GI/Abdominal: Reports: Nausea (Nausea without vomiting) : Reports: No Symptoms Musculoskeletal: Reports: Other Skin: Reports: No Symptoms (Right upper extremity) Neurological: Reports: Dizziness (She has been battling vertigo for over a month.), Numbness, Paresthesia (Grade noted in the right upper extremity and hand. Right arm feels weak), Tingling (At upper extremity), Difficulty Walking (Due to vertigo.), Weakness. Denies: Trouble Speaking Psychiatric: Reports: Anxiety Hematologic/Lymphatic: Reports: No Symptoms Immunologic: Reports: No Symptoms - Physical Exam Exam: See Below Exam Limited By: No Limitations General Appearance: Alert, WD/WN, Anxious, Moderate Distress, Other (Temperature is 36.8 with a heart rate of 67 and sinus respiratory is 18 with a pulse ox of 98% BP 105 181.) Eye Exam: Bilateral Eye: Normal Inspection, PERRL, Other (I could not identify any ptosis of the right eye.) Ears: Other (Unable to see the right tympanic membrane due to swelling of the right ear canal. It is also very tender to try and look into the right ear. Some tenderness of the mastoid process on the right side as well. His pain anywhere around the ear particularly posterior and anterior to the ear particular over the tragus. The left side is normal.) Throat/Mouth: Normal Inspection, Normal Lips, Normal Oropharynx, Other (Tongue is moist.) Head Exam: Atraumatic, Normocephalic. No: Scalp Lacerations, Scalp Swelling Neck: Normal Inspection, Supple, Non-Tender, Full Range of Motion. No: Carotid Bruit, Lymphadenopathy (L), Lymphadenopathy (R) Respiratory/Chest: No Respiratory Distress, Lungs Clear, Normal Breath Sounds, No Accessory Muscle Use Cardiovascular: Normal Peripheral Pulses, Regular Rate, Rhythm, No Edema, No Gallop, No Murmur, No Rub GI/Abdominal: Normal Bowel Sounds, Soft, Non-Tender, No Organomegaly, No Abnormal Bruit, No Mass, Pelvis Stable Neuro Exam (Abbreviated): Alert, Oriented, CN II-XII Intact, Normal Cognition, Other (Complains of paresthesias in the right upper extremity and perhaps is a little weaker than on the left on full action at the elbow.). No: Normal Gait (Not tested) DTR: 1+: Bicep (R), Bicep (L), Patella (R), Patella (L), Achilles (R), Achilles (L) Extremities: Normal Inspection, Normal Range of Motion, Non-Tender, No Pedal Edema Psychiatric: Anxious Skin Exam: Warm, Dry ([place] anxious.), Intact, Normal Color, No Rash EKG INTERPRETATION EKG Date: 04/25/20 Time: 09:33 Rhythm: NSR Rate (Beats/Min): 64 [place]: Normal P-Wave: Present QRS: Other (Early R wave transition consider septal hypertrophy pattern) ST-T: Normal QT: Normal EKG Interpretation Comments: ECG Course - Vital Signs Last Recorded V/S: Last Vital Signs Temp 36.8 C 04/25/20 08:55 Pulse 67 04/25/20 08:55 Resp 18 04/25/20 08:55 BP 105/81 04/25/20 08:55 Pulse Ox 98 04/25/20 08:55 - Orders/Labs/Meds Orders: Active Orders 24 hr Category Date Time Status EKG Documentation Completion [RC] STAT Care 04/25/20 09:16 Active Dextrose 5%-0.9% NaCl [Dextrose 5%-Normal Saline] 1,000 Med 04/25/20 09:15 Active ml IV ASDIRECTED Medication Orders Dextrose/Sodium Chloride (Dextrose 5%-Normal Saline) 1,000 mls @ 125 mls/hr IV ASDIRECTED DEDRA Last Admin: 04/25/20 09:29 Dose: 125 mls/hr Documented by: MORKJOR Labs: Laboratory Tests 04/25/20 04/25/20 04/25/20 Range/Units 09:08 09:28 09:28 WBC 5.85 (3.98-10.04) K/mm3 RBC 4.35 (3.98-5.22) M/mm3 Hgb 12.7 (11.2-15.7) gm/dl Hct 38.9 (34.1-44.9) % MCV 89.4 (79.4-94.8) fl MCH 29.2 (25.6-32.2) pg MCHC 32.6 (32.2-35.5) g/dl RDW Std Deviation 41.7 (36.4-46.3) fL Plt Count 283 (182-369) K/mm3 MPV 9.6 (9.4-12.3) fl Neutrophils % (Manual) 52 (40-60) % Band Neutrophils % 0 (0-10) % Lymphocytes % (Manual) 36 (20-40) % Atypical Lymphs % 0 % Monocytes % (Manual) 11 H (2-10) % Eosinophils % (Manual) 1 (0.7-5.8) % Basophils % (Manual) 0 L (0.1-1.2) Platelet Estimate Adequate RBC Morph Comment Normal Sodium 138 (136-145) mEq/L Potassium 3.7 (3.5-5.1) mEq/L Chloride 105 (98-107) mEq/L Carbon Dioxide 24 (21-32) mEq/L Anion Gap 12.7 (5-15) BUN 14 (7-18) mg/dL Creatinine 0.8 (0.55-1.02) mg/dL Est Cr Clr Drug Dosing 80.72 mL/min Estimated GFR (MDRD) > 60 (>60) mL/min BUN/Creatinine Ratio 17.5 (14-18) Glucose 89 (74-106) mg/dL POC Glucose 87 (70-105) mg/dL Calcium 8.5 (8.5-10.1) mg/dL Magnesium 2.0 (1.8-2.4) mg/dl Total Bilirubin 0.5 (0.2-1.0) mg/dL AST 26 (15-37) U/L ALT 30 (14-59) U/L Alkaline Phosphatase 51 (46-116) U/L C-Reactive Protein <0.2 (<1.0) mg/dL Total Protein 7.4 (6.4-8.2) g/dl Albumin 3.7 (3.4-5.0) g/dl Globulin 3.7 gm/dL Albumin/Globulin Ratio 1.0 (1-2) Meds: Medications Generic Name Dose Route Start Last Admin Trade Name Freq PRN Reason Stop Dose Admin Dextrose/Sodium Chloride 1,000 mls @ 125 mls/hr 04/25/20 09:15 04/25/20 09:29 Dextrose 5%-Normal Saline IV 125 mls/hr ASDIRECTED DEDRA Administration Discontinued Medications Generic Name Dose Route Start Last Admin Trade Name Freq PRN Reason Stop Dose Admin Hydromorphone HCl 0.5 mg 04/25/20 09:15 04/25/20 09:29 Dilaudid IVPUSH 04/25/20 09:16 0.5 mg ONETIME ONE Administration Hydromorphone HCl 0.5 mg 04/25/20 10:35 04/25/20 10:46 Dilaudid IVPUSH 04/25/20 10:36 0.5 mg ONETIME ONE Administration Promethazine HCl 12.5 mg/ 50.5 mls @ 100 mls/hr 04/25/20 09:15 04/25/20 09:38 Sodium Chloride IV 04/25/20 09:45 100 mls/hr ONETIME ONE Administration - Radiology Interpretation Free Text/Narrative:: 39-year-old female presents to the ED with near syncopal event while in the shower this morning. She woke up with a really bad right hemicranial headache which she rates 9 out of 10. She has migraines but not frequently. Associated nausea with no vomiting. She felt this morning that her right eye was exhibiting some degree of ptosis but this is not clinically apparent. She had difficulty putting on her eye make-up but this morning due to weakness of her right upper extremity and feels that it is numb and tingly. She is right-hand dominant. Clinical exam shows the right arm to be a little weaker than the left on testing the biceps or flexor muscles. She did okay with [id number] but could do it much more easily and rapidly on the left side. Reflexes are all 1+ and symmetrical. No evidence of facial weakness appreciated on exam. Cranial nerves II to XII are intact. Plan the patient is allergic to Reglan and Toradol. She will therefore receive Phenergan 12.5 mg IV with Dilaudid 0.5 mg IV for headache relief. Stroke alert was called in this lady although she is experiencing primarily vertigo symptoms she does exhibit some very minimal right-sided weakness. CT head will be done. Also looking for mastoiditis on the right side. Believes she has an appoint with ENT this week. ECG will be also done. IV will be D5 Ringer's lactate at 500 mils per hour. - Re-Assessments/Exams Free Text/Narrative Re-Assessment/Exam: 04/25/20 09:37 CT of the head has been done without contrast. It reveals no intracranial abnormality. There is no mass-effect or intracranial bleeding. Ventricles along with the basal cisterns and sulci over the convexities are within normal limits for the patient's age. Mastoid sinuses are clear. Previous right-sided mastoidectomy has been done. No acute findings are seen within the visualized paranasal sinuses. Middle ear cavities appear clear bilaterally. 04/25/20 10:35 that is still complaining of significant headache on the right side of her head. Will repeat Dilaudid 0.5 mg IV. 04/25/20 10:36 Chemistry reveals a normal sodium of 138 potassium of 3.7. Chloride is 105 with a bicarb of 24. Anion gap is 12.7 BUN is 14 with a creatinine of 0.8. Glucose is 89 calcium is 8.5 magnesium 2.0 liver function normal. C-reactive protein less than 0.2. Total protein 7.4 with an albumin fraction of 3.7 04/25/20 12:29 Sodium is 138 with a potassium of 3.7. Chloride 105 with a bicarb of 24. Anion gap is 12.7. BUN is 14 with a creatinine of 0.8. GFR remains greater than 60. Glucose is 89 with a bedside glucose of 87. Calcium was 8.5 with a magnesium of 2.0. Liver function is normal C-reactive protein is less than 0.2 total protein 7.4 with an albumin fraction of 3.7. Reports her headache is better just not gone but the whole right side of her face is still painful. 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 There is certainly no evidence of CVA. Of advised her to increase her gabapentin from 300 mg at bedtime to 600 mg at bedtime and continue the 300 mg dose in the morning. I am going to discharge her on Percocet tabs 5/325 mg 1 tablet at bedtime to help sleep. Is not scheduled to see ear nose and throat provider until May 04. It will be Dr. Laureano in [place]. Surgery was performed by ENT at the [facility] in [place]. CT does not show any middle ear infection and also no obvious mass in the ear canal that would suggest a recurrence of cholesteatoma. The mastoid is been previously surgically altered but there is appears to be no active's mastoiditis. Clinically she has a right otitis externa as she is not able to touch her ear and the tragus is extremely sore to touch. Currently on oral antibiotics and optic drops. Departure - Departure Time of Disposition: 12:43 Disposition: Home, Self-Care 01 Condition: Fair Clinical Impression: Right-sided face pain Diffuse otitis externa, right ear Qualifiers: Chronicity: acute Qualified Code(s): H60.311 - Diffuse otitis externa, right ear - Discharge Information *PRESCRIPTION DRUG MONITORING PROGRAM REVIEWED*: Not Applicable *COPY OF PRESCRIPTION DRUG MONITORING REPORT IN PATIENT JOSE DAVID: Not Applicable Prescriptions: oxyCODONE HCl/Acetaminophen [Percocet 5-325 mg Tablet] 1 - 2 each PO Q4H PRN #20 tablet PRN Reason: pain relief. Instructions: Otitis Externa, [id number] Referrals: Alissa Rutledge NP [Primary Care Provider] - Forms: ED Department Discharge, ED Return to Work/School Form Additional Instructions: Evaluation in the emergency room this morning in regards to severe right sagrario- facial pain syndrome associated with some swelling and perhaps some drooping of the right upper eyelid when you first got up this morning. This was not clinically apparent on my examination. Also a feeling of smile being asymmetrical this morning when you got up but I could not identify this on my examination. Right upper extremity seem to be mildly weak as compared to the left. T of the head was therefore performed and did not reveal any changes suggestive of stroke or ischemia. The brain itself is within normal limits with no intracranial bleeding or mass-effect. Mastoid sinuses were also clear on both sides. There is been previous surgery of the mastoid process on the right side. No other findings are visualized within the paranasal sinuses. I did not find any middle ear abnormalities on the right side that would suggest a cholesteatoma invading into that area. There was no obvious erosion of the bone surrounding the eardrum on the right side either. Suspect your pain syndrome is neuralgia often from the original surgery. Just increasing her gabapentin from 300 to 600 mg at bedtime and sinew to 300 mg tablet in the morning. You the eardrops and antibiotics as previously prescribed. Prescription written for Percocet tabs 5/325 mg strength suggest 1 tablet at bedtime and if in an hour and half to 2 hours you are still having significant pain may take a second tablet. Follow-up with ear nose and throat surgeon as planned on May 04. Note given to excuse you from the workplace today and tomorrow. Return to the ED if you have any further similar events. Sepsis Event Note (ED) - Evaluation Sepsis Screening Result: No Definite Risk - Focused Exam Vital Signs: Vital Signs Temp Pulse Resp BP Pulse Ox 04/25/20 08:55 36.8 C 67 18 105/81 98 - My Orders Last 24 Hours: My Active Orders 04/25/20 09:15 Dextrose 5%-0.9% NaCl [Dextrose 5%-Normal Saline] 1,000 ml IV ASDIRECTED 04/25/20 09:16 EKG Documentation Completion [RC] STAT - Assessment/Plan Last 24 Hours: My Active Orders 04/25/20 09:15 Dextrose 5%-0.9% NaCl [Dextrose 5%-Normal Saline] 1,000 ml IV ASDIRECTED 04/25/20 09:16 EKG Documentation Completion [RC] STAT
--- NOTE | 2020-04-25 09:33 | CT ---
Head CT Technique: Multiple axial sections through the brain were obtained. Intravenous contrast was not utilized. Comparison: Prior head CT exam of 07/14/19. Findings: Ventricles along with basal cisterns and sulci over the convexities are within normal limits for the patient's age. No abnormal parenchymal densities are seen. No evidence of intracranial hemorrhage. No midline shift or mass-effect is seen. Mastoid sinuses are clear. Previous right-sided mastoidectomy is noted. No acute findings are seen within the visualized paranasal sinuses. No acute calvarial finding is seen. Impression: 1. Prior right mastoidectomy. 2. Nothing acute is appreciated on noncontrast head CT exam. Diagnostic code #2 This report was dictated in MDT
== END 2020-04-25 13:00 | disposition home or self-care (01) ==
LOC: JD.ED 08:47
DX: H60.311 Diffuse otitis externa, right ear (principal); F32.9 Major depressive disorder, single episode, unspecified; Z79.899 Other long term (current) drug therapy; Z88.1 Allergy status to other antibiotic agents; Z88.6 Allergy status to analgesic agent; Z88.8 Allergy status to other drugs, medicaments and biological substances
CPT/HCPCS: 36415; 70450; 80053; 82962; 83735; 85007; 85027; 86140; 93005; 96361; 96365; 96375; 96376; 99285; J1170; J7042; 93010; 99284; J2550; J7050

== ENCOUNTER 2020-05-20 10:38 | Emergency (ER) | payer MEDICAID ==
--- NOTE | 2020-05-20 12:23 | EDM.PDOC ---
<Trino Gonzalez Citlalli - Last Filed: 05/20/20 13:08> ED HPI GENERAL MEDICAL PROBLEM - General Chief Complaint: Headache Stated Complaint: SYNCOPE/HEADACHE/VOMITING/DIARRHEA Time Seen by Provider: 05/20/20 11:09 Source of Information: Reports: Patient - History of Present Illness INITIAL COMMENTS - FREE TEXT/NARRATIVE: 39 year-old female comes to the emergency department for worsening right sided ear/neck/jaw pain with accompanying nausea, vomiting, diarrhea, and migraine headache. Patient has a long standing history of ear infections with several tympanic tubes since personal carer. 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 Patient had had worsening right ear pain over the past few months and was recently seen by an ENT in [place] on May 04. Patient was not very impressed with the care she received and followed up with her PCP Kacey Rutledge NP on May 09.. At that visit she was proscribed levofloxacin and an oral antiviral medication due to canker sores and ongoing right ear infection. Pt was also give Cipro HC ear drops. Beginning about 3-4 days ago pt's symptoms became worse with nausea and vomiting. She can no longer walk without assistance due to severe vertigo and feeling like she is going to pass out. Pt also states that whenever she is up out of bed she will begin to see spots and become light headed. During these episodes she also has muscle jerking in her upper and lower extremities and needs to brace herself to prevent from falling. The only thing that relieves her symptoms is to lie back down. As stated, her symptoms are becoming worse and she now has a left sided migraine headache as well as the left sided ear/neck/jaw pain. Patient denies having fever or chills. Headache Pain Score (Numeric/FACES): 9 - Related Data Allergies Allergy/AdvReac Type Severity Reaction Status Date / Time ciprofloxacin [From Cipro] Allergy Severe Rash Verified 05/20/20 10:46 ketorolac [From Toradol] Allergy Severe Hives Verified 05/20/20 10:46 prochlorperazine Allergy Severe Hives Verified 05/20/20 10:46 [From Compazine] metoclopramide [From Reglan] AdvReac Severe Anxiety Verified 05/20/20 10:46 Home Meds: Home Meds Citalopram Hydrobromide [Celexa] 40 mg PO DAILY 03/09/20 [History] Mv-Mn/Folic/Jas/Vit K/B Comp,C [Women's Daily Pack] 1 each PO DAILY 03/09/20 [History] Amphetamine/Dextroamphetamine [Adderall] 15 mg PO BID 05/20/20 [History] Ciprofloxacin/Hydrocortisone [Cipro HC Otic Susp] 6 drop TOP DAILY 05/20/20 [History] L.acidoph,Paracasei, B.lactis [Probiotic] 1 cap PO DAILY 05/20/20 [History] Meclizine [Antivert] 25 mg PO Q6H PRN #20 tab 05/20/20 [Rx] Past Medical History HEENT History: Reports: Otitis Media, Other (See Below) Other HEENT History: Patient has had to have coldest stoma surgery on the right ear x2. She has had 4 sets of myringotomy tubes. Lot of pain in the mastoid process on the right side. 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: Musculoskeletal History: Reports: None Neurological History: Reports: Headaches, Chronic, Migraines Psychiatric History: Reports: ADHD, Anxiety, Depression Endocrine/Metabolic History: Reports: None Hematologic History: Reports: None Immunologic History: Reports: None Oncologic (Cancer) History: Reports: Cervix Dermatologic History: Reports: None - Infectious Disease History Infectious Disease History: Reports: Chicken Pox - Past Surgical History HEENT Surgical History: Reports: Myringotomy w Tube(s) Other HEENT Surgeries/Procedures: cholesteatoma has had 11 surgeries GI Surgical History: Reports: Cholecystectomy Female Surgical History: Reports: Tubal Ligation Social & Family History - Family History Family Medical History: Noncontributory - Tobacco Use Smoking Status *Q: Never Smoker - Caffeine Use Caffeine Use: Reports: Coffee - Recreational Drug Use Recreational Drug Use: No - Living Situation & Occupation Living situation: Reports: Occupation: Employed ED ROS GENERAL - Review of Systems Review Of Systems: See Below Constitutional: Reports: Weakness, Fatigue. Denies: Fever, Chills, Night Sweats, Diaphoresis HEENT: Reports: Ear Pain (ongoing pain in her right ear. the pain radiates down her posterior neck as well as into her right jaw. It is extremely tender and painful.), Hearing Loss, Vertigo, Vision Change (sees spots whenever she is up for too long) Respiratory: Reports: No Symptoms Cardiovascular: Reports: No Symptoms GI/Abdominal: Reports: No Symptoms : Reports: No Symptoms Musculoskeletal: Reports: Other (pain is localized to her right head, face, and neck) Skin: Reports: No Symptoms Neurological: Reports: Dizziness, Headache, Syncope, Trouble Speaking, Difficulty Walking, Weakness, Other (symptoms are worse when patient is up out of bed.) - Physical Exam Exam: See Below Exam Limited By: No Limitations General Appearance: Alert, Mild Distress (patient became quite emotional while talking about her frustration with her ongoing condition.) Ears: Other (scaring noted to left tempanic menbrain but otherwise no complications noted. Right external canal was extrememly swollen and tender. Was not able to adequately visualize TM on right side.) Nose: Normal Inspection, Normal Mucosa, No Blood Throat/Mouth: Normal Inspection, Normal Lips, Normal Teeth, Normal Gums, Normal Oropharynx, Normal Voice, No Airway Compromise Head Exam: Atraumatic, Facial Tenderness (Pain from right ear radiates to right sided jaw and in tender and painful on palpation.) Neck: Full Range of Motion, Tender Lateral (Right lateral neck is tender to palpation. Posterior right neck is very painful with palpation) Respiratory/Chest: No Respiratory Distress, Lungs Clear, Normal Breath Sounds, No Accessory Muscle Use, Chest Non-Tender Cardiovascular: Normal Peripheral Pulses, Regular Rate, Rhythm, No Edema, No Gallop, No JVD, No Murmur, No Rub GI/Abdominal: Normal Bowel Sounds, Soft, Non-Tender, No Organomegaly, No Distention, No Abnormal Bruit, No Mass Neuro Exam (Abbreviated): Alert, Oriented Extremities: Normal Inspection, Normal Range of Motion, Non-Tender, No Pedal Edema, Normal Capillary Refill Psychiatric: Tearful Skin Exam: Warm, Dry, Intact, Normal Color, No Rash Departure - Departure Disposition: Home, Self-Care 01 Clinical Impression: Right ear pain, External otitis of right ear - Discharge Information Referrals: Alissa Rutledge NP [Primary Care Provider] - Forms: ED Department Discharge Additional Instructions: Return to the emergency room with any questions problems or worsening symptoms. Use the meclizine 25 mg every 6 hours only if absolutely needed for nausea and dizziness. Follow-up in the clinic this next week. Use the Cipro HC drops as we discussed. Sepsis Event Note (ED) - Evaluation Sepsis Screening Result: No Definite Risk <Ángel Jon - Last Filed: 05/20/20 16:05> Course - Vital Signs Last Recorded V/S: Last Vital Signs Temp 36.2 C 05/20/20 10:48 Pulse 54 L 05/20/20 10:48 Resp 13 05/20/20 10:48 BP 107/74 05/20/20 10:48 Pulse Ox 100 05/20/20 10:48 Orthostatic Blood Pressure [ 103/72 Standing] Orthostatic Blood Pressure [ 110/75 Sitting] Orthostatic Blood Pressure [ 111/82 Supine] - Orders/Labs/Meds Orders: Active Orders 24 hr Category Date Time Status Peripheral IV Care [RC] . DIRECTED Care 05/20/20 12:36 Active Sodium Chloride 0.9% [Saline Flush] Med 05/20/20 12:35 Active 10 ml FLUSH ASDIRECTED PRN Peripheral IV Insertion Adult [OM.PC] Stat Oth 05/20/20 12:35 Ordered Medication Orders Sodium Chloride (Saline Flush) 10 ml FLUSH ASDIRECTED PRN PRN Reason: Keep Vein Open Last Admin: 05/20/20 12:46 Dose: 10 ml Documented by: KEVIN Labs: Laboratory Tests 05/20/20 05/20/20 Range/Units 14:29 14:29 WBC 5.80 (3.98-10.04) K/mm3 RBC 4.19 (3.98-5.22) M/mm3 Hgb 12.2 (11.2-15.7) gm/dl Hct 37.6 (34.1-44.9) % MCV 89.7 (79.4-94.8) fl MCH 29.1 (25.6-32.2) pg MCHC 32.4 (32.2-35.5) g/dl RDW Std Deviation 43.3 (36.4-46.3) fL Plt Count 252 (182-369) K/mm3 MPV 9.3 L (9.4-12.3) fl Neut % (Auto) 62.2 (34.0-71.1) % Lymph % (Auto) 31.4 (19.3-51.7) % Henry % (Auto) 5.7 (4.7-12.5) % Eos % (Auto) 0.3 L (0.7-5.8) Baso % (Auto) 0.2 (0.1-1.2) % Neut # (Auto) 3.61 (1.56-6.13) K/mm3 Lymph # (Auto) 1.82 (1.18-3.74) K/mm3 Henry # (Auto) 0.33 (0.24-0.36) K/mm3 Eos # (Auto) 0.02 L (0.04-0.36) K/mm3 Baso # (Auto) 0.01 (0.01-0.08) K/mm3 Sodium 139 (136-145) mEq/L Potassium 4.0 (3.5-5.1) mEq/L Chloride 105 (98-107) mEq/L Carbon Dioxide 23 (21-32) mEq/L Anion Gap 15.0 (5-15) BUN 12 (7-18) mg/dL Creatinine 0.8 (0.55-1.02) mg/dL Est Cr Clr Drug Dosing 80.72 mL/min Estimated GFR (MDRD) > 60 (>60) mL/min BUN/Creatinine Ratio 15.0 (14-18) Glucose 84 (74-106) mg/dL Calcium 8.8 (8.5-10.1) mg/dL Total Bilirubin 0.5 (0.2-1.0) mg/dL AST 18 (15-37) U/L ALT 35 (14-59) U/L Alkaline Phosphatase 44 L (46-116) U/L C-Reactive Protein <0.2 (<1.0) mg/dL Total Protein 6.9 (6.4-8.2) g/dl Albumin 3.7 (3.4-5.0) g/dl Globulin 3.2 gm/dL Albumin/Globulin Ratio 1.2 (1-2) Meds: Medications Generic Name Dose Route Start Last Admin Trade Name Freq PRN Reason Stop Dose Admin Sodium Chloride 10 ml 05/20/20 12:35 05/20/20 12:46 Saline Flush FLUSH 10 ml ASDIRECTED PRN Administration Keep Vein Open Discontinued Medications Generic Name Dose Route Start Last Admin Trade Name Freq PRN Reason Stop Dose Admin Hydrocodone Bitart/Acetaminophen 1 tab 05/20/20 14:14 05/20/20 14:48 [place] 325-5 Mg PO 05/20/20 14:15 1 tab ONETIME ONE Administration Fentanyl Confirm 05/20/20 14:09 05/20/20 14:14 Sublimaze Administered 05/20/20 14:10 Not Given Dose 2,500 mcg .ROUTE .STK-MED ONE Fentanyl 50 mcg 05/20/20 14:13 05/20/20 14:16 Sublimaze IVPUSH 05/20/20 14:14 50 mcg ONETIME ONE Administration Fentanyl Confirm 05/20/20 14:10 05/20/20 14:17 Sublimaze Administered 05/20/20 14:11 Not Given Dose 100 mcg .ROUTE .STK-MED ONE Lactated Ringer's 1,000 mls @ 999 mls/hr 05/20/20 12:35 05/20/20 12:45 Ringers, Lactated IV 05/20/20 13:35 999 mls/hr .BOLUS ONE Administration Lactated Ringer's Confirm 05/20/20 14:10 05/20/20 14:14 Ringers, Lactated Administered 05/20/20 14:11 Not Given Dose 1,000 mls @ as directed .ROUTE .STK-MED ONE Lactated Ringer's 1,000 mls @ 1,000 mls/hr 05/20/20 14:18 05/20/20 14:19 Ringers, Lactated IV 05/20/20 15:17 1,000 mls/hr NOW STA Administration Meclizine HCl 25 mg 05/20/20 13:34 05/20/20 13:43 Antivert PO 05/20/20 13:35 25 mg ONETIME ONE Administration - Re-Assessments/Exams Free Text/Narrative Re-Assessment/Exam: 05/20/20 13:06 To the Hallpike's maneuver however the patient had dizziness on both sides with no nystagmus her symptoms most likely are not related to benign positional vertigo. I worked with Duarte Gonzalez during the initial interview evaluation and plan of work-up. I will continue as he had to leave with the evaluation and disposition. Patient is off the CT now. She is having some pain after we examined around her right ear. 05/20/20 15:53 Is no longer orthostatic she received 2 L of fluid. She is ambulatory without assistance the dizziness is much better. At this point the patient really wants to go home we will discharge her give her a few Hungry Horse and some meclizine 05/20/20 16:02 Patient got 120 Hungry Horse from Alissa Rutledge the of this month we will not be giving her any Hungry Horse. Departure - Departure Time of Disposition: 15:56 Sepsis Event Note (ED) - Focused Exam Vital Signs: Vital Signs Temp Pulse Resp BP Pulse Ox 05/20/20 10:48 36.2 C 54 L 13 107/74 100
[2020-05-20] MEDS ORDERED: Lactated Ringers 1,000 ML IV ONE (12:35)
[2020-05-20] MEDS ORDERED: Sodium Chloride 0.9% 10 ML Syringe FLUSH PRN (12:35)
--- NOTE | 2020-05-20 13:40 | CT ---
CT temporal Bones Technique: Multiple axial sections through the temporal bones were obtained. Reconstructed coronal and sagittal images were reviewed. Findings: Prior right mastoidectomy is seen. Middle ear cavity and petrous air cells on the right side are clear. Mastoid sinuses and middle ear cavities on the left side are clear. No abnormal mineralization around the cochlea or semicircular canals are seen. Internal auditory canals are symmetric. Visualized paranasal sinuses show nothing acute. Impression: 1. Previous right mastoidectomy. 2. No additional abnormality is identified on CT study of the temporal bones. Diagnostic code #2 This report was dictated in MDT
[2020-05-20] MEDS ORDERED: fentaNYL 2500 MCG/50 ML SDV ONE (14:09)
[2020-05-20] MEDS ORDERED: Lactated Ringers 1,000 ML ONE (14:10)
[2020-05-20] MEDS ORDERED: fentaNYL 100 MCG/2 ML SDV ONE (14:10)
[2020-05-20] MEDS ORDERED: fentaNYL 100 MCG/2 ML SDV IVPUSH ONE (14:13)
[2020-05-20] MEDS ORDERED: Acetaminophen/HYDROcodone 325-5 MG Tab PO ONE (14:14)
[2020-05-20] MEDS ORDERED: Lactated Ringers 1,000 ML IV STA (14:18)
== END 2020-05-20 16:30 | disposition home or self-care (01) ==
LOC: JD.ED 10:38
DX: H60.91 Unspecified otitis externa, right ear (principal); F90.9 Attention-deficit hyperactivity disorder, unspecified type; F32.9 Major depressive disorder, single episode, unspecified; Z88.1 Allergy status to other antibiotic agents; Z88.6 Allergy status to analgesic agent; Z88.8 Allergy status to other drugs, medicaments and biological substances; Z79.899 Other long term (current) drug therapy
CPT/HCPCS: 36415; 70480; 80053; 85025; 86140; 96361; 96374; 99284; A9270; J3010; J7120; 70482-26; 99283

== ENCOUNTER 2020-08-17 21:33 | Emergency (ER) | payer MEDICAID ==
[2020-08-17] MEDS ORDERED: Acetaminophen/HYDROcodone 325-5 MG Tab PO ONE ×2 (22:20→23:07)
[2020-08-17] MEDS ORDERED: Phenazopyridine 95 MG Tab PO ONE (22:21)
[2020-08-17] MEDS ORDERED: Nitrofurantoin Monohydrate/Macrocrystalline 100 MG Cap PO ONE (22:59)
--- NOTE | 2020-08-17 23:16 | EDM.PDOC ---
ED HPI GENERAL MEDICAL PROBLEM - General Chief Complaint: Genitourinary Problem Stated Complaint: HEADACHE DIARRHEA SOB POSS UTI Time Seen by Provider: 08/17/20 22:01 Source of Information: Reports: Patient, RN Notes Reviewed - History of Present Illness INITIAL COMMENTS - FREE TEXT/NARRATIVE: 40 yr old female with voiding dysuria, frequency for about 4 days, getting worse. Also has cough, sore throat, rhinitis, chills, myalgias for many days. No definite fever. No vomiting. Bladder Pain Score (Numeric/FACES): 10 Frontal Headache Pain Score (Numeric/FACES): 10 - Related Data Allergies Allergy/AdvReac Type Severity Reaction Status Date / Time ciprofloxacin [From Cipro] Allergy Severe Rash Verified 05/20/20 10:46 ketorolac [From Toradol] Allergy Severe Hives Verified 05/20/20 10:46 prochlorperazine Allergy Severe Hives Verified 05/20/20 10:46 [From Compazine] metoclopramide [From Reglan] AdvReac Severe Anxiety Verified 05/20/20 10:46 Home Meds: Home Meds Citalopram Hydrobromide [Celexa] 40 mg PO DAILY 03/09/20 [History] Mv-Mn/Folic/Jas/Vit K/B Comp,C [Women's Daily Pack] 1 each PO DAILY 03/09/20 [History] Amphetamine/Dextroamphetamine [Adderall] 10 mg PO BID 05/20/20 [History] L.acidoph,Paracasei, B.lactis [Probiotic] 1 cap PO DAILY 05/20/20 [History] Meclizine [Antivert] 25 mg PO Q6H PRN #20 tab 05/20/20 [Rx] Acetaminophen/HYDROcodone [[place] 325-5 MG] 1 tab PO Q4H PRN #10 tablet 08/17/20 [Rx] Hydrocodone/Acetaminophen [Hydrocodone-Acetamin 10-325 mg] 1 tab PO Q6H PRN 08/17/20 [History] Nitrofurantoin Monohyd/M-Cryst [Macrobid 100 mg Capsule] 100 mg PO Q12HR #14 capsule 08/17/20 [Rx] Phenazopyridine HCl [Azo Urinary Pain Relief] 1 tab PO DAILY 08/17/20 [History] Past Medical History HEENT History: Reports: Otitis Media, Other (See Below) Other HEENT History: Patient has had to have coldest stoma surgery on the right ear x2. She has had 4 sets of myringotomy tubes. Lot of pain in the mastoid process on the right side. 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: Musculoskeletal History: Reports: None Neurological History: Reports: Headaches, Chronic, Migraines Psychiatric History: Reports: ADHD, Anxiety, Depression Endocrine/Metabolic History: Reports: None Hematologic History: Reports: None Immunologic History: Reports: None Oncologic (Cancer) History: Reports: Cervix Dermatologic History: Reports: None - Infectious Disease History Infectious Disease History: Reports: Chicken Pox - Past Surgical History HEENT Surgical History: Reports: Myringotomy w Tube(s) Other HEENT Surgeries/Procedures: cholesteatoma has had 11 surgeries GI Surgical History: Reports: Cholecystectomy Female Surgical History: Reports: Tubal Ligation Social & Family History - Family History Family Medical History: Noncontributory - Tobacco Use Tobacco Use Status *Q: Former Tobacco User Used Tobacco, but Quit: Yes Month/Year Tobacco Last Used: 3 yrs - Caffeine Use Caffeine Use: Reports: Coffee, Soda - Recreational Drug Use Recreational Drug Type: Reports: Heroin Other Recreational Drug Type: last used drug 2017-wears a 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 Denies: Fever HEENT: Reports: Rhinitis, Throat Pain Respiratory: Reports: Cough. Denies: Shortness of Breath Cardiovascular: Denies: Chest Pain GI/Abdominal: Reports: Decreased Appetite. Denies: Abdominal Pain, Vomiting : Reports: Dysuria, Frequency, Urgency Musculoskeletal: Reports: Other (myalgias) Skin: Denies: Rash Neurological: Reports: Headache ED EXAM, GENERAL - Physical Exam Exam: See Below General Appearance: Alert, Moderate Distress Head: Atraumatic Neck: Supple Respiratory/Chest: No Respiratory Distress, Lungs Clear, Normal Breath Sounds. No: Rhonchi, Wheezing Cardiovascular: Tachycardia GI/Abdominal: Non-Tender Back Exam: No: CVA Tenderness (L), CVA Tenderness (R) Extremities: Normal Inspection. No: Pedal Edema Neurological: Alert, Oriented, No Motor/Sensory Deficits Skin Exam: Warm, Dry, Normal Color, No Rash Course - Vital Signs Last Recorded V/S: Last Vital Signs Temp 98.2 F 08/17/20 21:45 Pulse 100 08/17/20 21:45 Resp 20 08/17/20 21:45 BP 108/80 08/17/20 21:45 Pulse Ox 98 08/17/20 21:45 - Orders/Labs/Meds Orders: Active Orders 24 hr Category Date Time Status Chest 1V Frontal [CR] Stat Exams 08/17/20 22:03 Taken CORONAVIRUS COVID-19 PCR PHL Stat Lab 08/17/20 22:30 Received Labs: Laboratory Tests 08/17/20 Range/Units 22:11 Urine Color [place] H (Yellow) Urine Appearance Clear (Clear) Urine pH 6.5 (5.0-8.0) Ur Specific [place] 1.020 (1.005-1.030) Urine Protein 2+ H (Negative) Urine Glucose (UA) Trace H (Negative) Urine Ketones Trace H (Negative) Urine Occult Blood Negative (Negative) Urine Nitrite Positive H (Negative) Urine Bilirubin 1+ H (Negative) Urine Urobilinogen 4.0 H (0.2-1.0) Ur Leukocyte Esterase 3+ H (Negative) Urine RBC 0-5 (0-5) /hpf Urine WBC 5-10 H (0-5) /hpf Ur Squamous Epith Cells 20-30 H (0-5) /hpf Urine Bacteria Many H (FEW) /hpf Urine Mucus Moderate H (FEW) /hpf Meds: Medications Discontinued Medications Generic Name Dose Route Start Last Admin Trade Name Maria Esther PRN Reason Stop Dose Admin Hydrocodone Bitart/Acetaminophen 1 tab 08/17/20 22:20 08/17/20 22:33 [place] 325-5 Mg PO 08/17/20 22:21 1 tab ONETIME ONE Administration Hydrocodone Bitart/Acetaminophen 1 tab 08/17/20 23:07 [place] 325-5 Mg PO 08/17/20 23:08 ONETIME ONE Nitrofurantoin Macrocrystals 100 mg 08/17/20 22:59 Macrobid PO 08/17/20 23:00 ONETIME ONE Phenazopyridine HCl 95 mg 08/18/20 22:21 Urinary Pain Relief PO 08/18/20 22:22 ONETIME ONE Phenazopyridine HCl 95 mg 08/17/20 22:21 08/17/20 22:33 Urinary Pain Relief PO 08/17/20 22:22 95 mg ONETIME ONE Administration - Re-Assessments/Exams Free Text/Narrative Re-Assessment/Exam: 08/17/20 23:21 Pt has UTI, CXR nl, covid screen to send to state done. Departure - Departure Time of Disposition: 23:08 Disposition: Home, Self-Care 01 Condition: Fair Clinical Impression: UTI, Urinary tract infectious disease, Viral syndrome Pharyngitis Qualifiers: Pharyngitis/tonsillitis etiology: unspecified etiology Qualified Code(s): J02.9 - Acute pharyngitis, unspecified - Discharge Information Prescriptions: Nitrofurantoin Monohyd/M-Cryst [Macrobid 100 mg Capsule] 100 mg PO Q12HR #14 capsule Acetaminophen/HYDROcodone [[place] 325-5 MG] 1 tab PO Q4H PRN #10 tablet PRN Reason: Pain Referrals: Alissa Rutledge NP [Primary Care Provider] - Forms: ED Department Discharge Additional Instructions: Macrobid antibiotic 100 mg twice daily for 1 week. Hydrocodone 5/325 1 tab q 4 to 6 hr if needed for severe pain. Prescriptions have been sent to [facility]. Drink plenty of fluids to maintain hydration. Covid screen has been done. Results will be called to you when available, usually within 2 to 3 days. Continue to self isolate. Return to ED for severe difficulty breathing or otherwise as needed. Sepsis Event Note (ED) - Evaluation Sepsis Screening Result: No Definite Risk - Focused Exam Vital Signs: Vital Signs Temp Pulse Resp BP Pulse Ox 08/17/20 21:45 98.2 F 100 20 108/80 98 - My Orders Last 24 Hours: My Active Orders 08/17/20 22:03 Chest 1V Frontal [CR] Stat 08/17/20 22:30 CORONAVIRUS COVID-19 PCR PHL Stat - Assessment/Plan Last 24 Hours: My Active Orders 08/17/20 22:03 Chest 1V Frontal [CR] Stat 08/17/20 22:30 CORONAVIRUS COVID-19 PCR PHL Stat
--- NOTE | 2020-08-18 16:21 | CR ---
PROCEDURE INFORMATION: Exam: XR Chest, 1 View Exam date and time: 08/17/2020 10:02 PM Age: 40 years old Clinical indication: Patient HX: Cough, chills TECHNIQUE: Imaging protocol: XR of the chest Views: 1 view. COMPARISON: No relevant prior studies available. FINDINGS: Lungs: Unremarkable. No consolidation. Pleural space: Unremarkable. No pleural effusion. No pneumothorax. Heart/Mediastinum: Unremarkable. No cardiomegaly. Bones/joints: Unremarkable. IMPRESSION: No acute findings. Thank you for allowing us to participate in the care of your patient. Dictated and Authenticated by: Layne Waterman MD 08/17/2020 11:40 PM Central Time ([place] & [place]) [place]
[2020-08-18] MEDS ORDERED: Phenazopyridine 95 MG Tab PO ONE (22:21)
== END 2020-08-17 23:25 | disposition home or self-care (01) ==
LOC: JD.ED 21:33
DX: N39.0 Urinary tract infection, site not specified (principal); B34.9 Viral infection, unspecified; J02.9 Acute pharyngitis, unspecified; F90.9 Attention-deficit hyperactivity disorder, unspecified type; F41.9 Anxiety disorder, unspecified; F32.9 Major depressive disorder, single episode, unspecified; Z87.891 Personal history of nicotine dependence; Z88.1 Allergy status to other antibiotic agents; Z88.6 Allergy status to analgesic agent; Z88.8 Allergy status to other drugs, medicaments and biological substances; Z79.899 Other long term (current) drug therapy
CPT/HCPCS: 71045; 81001; 99283; A9270; U0002

== ENCOUNTER 2020-12-02 15:44 | Emergency (ER) | payer MEDICAID ==
[2020-12-02] MEDS ORDERED: Sodium Chloride 0.9% 10 ML Syringe FLUSH PRN (16:21)
[2020-12-02] MEDS ORDERED: Ondansetron 4 MG/2 ML SDV IVPUSH ONE (16:21)
[2020-12-02] MEDS ORDERED: oxyCODONE 5 MG Tab PO ONE (16:22)
[2020-12-02] MEDS ORDERED: Sodium Chloride 0.9% 1,000 ML IV SCH (16:30)
[2020-12-02] MEDS ORDERED: FLU VACC QS2020-21(6MOS UP)/PF 60 MCG/0.5 ML SYRINGE IM ONE (16:45)
--- NOTE | 2020-12-02 17:02 | EDM.PDOC ---
ED HPI GENERAL MEDICAL PROBLEM - General Chief Complaint: Abdominal Pain Stated Complaint: L SIDE ABD PAIN Time Seen by Provider: 12/02/20 15:55 Source of Information: Reports: Patient History Limitations: Reports: No Limitations - History of Present Illness INITIAL COMMENTS - FREE TEXT/NARRATIVE: The patient presents with left flank and left abdominal pain. She says she was just discharged from [facility] in [place]. She says back in September she was abusing drugs and injecting them. She had developed a cough and was seen in [place]. 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 She was sent to [place] and they did surgery to remove some vegetations on her valves. She has been in [facility] for months. She started having some left flank and left sided abdominal pain 3 days ago before discharge. She says they did some labs and found nothing. She rode home on a bus and there were lots of bumps and the pain got worse. She has some nausea. She also developed some hematuria. She has no history of kidney stones. She says her brother has a history of kidney stones. She has no fever, chills, cough, or dysuria. Onset: Gradual Duration: Day(s): (3) Location: Reports: Abdomen, Back Quality: Reports: Sharp Severity: Moderate Improves with: Reports: None Worsens with: Reports: None Associated Symptoms: Reports: Nausea/Vomiting. Denies: Chest Pain, Cough, Fever/Chills, Headaches, Shortness of Breath Left Abdomen Pain Score (Numeric/FACES): 9 - Related Data Allergies Allergy/AdvReac Type Severity Reaction Status Date / Time ciprofloxacin [From Cipro] Allergy Intermediate Rash Verified 12/02/20 16:40 ketorolac [From Toradol] Allergy Intermediate Hives Verified 12/02/20 16:40 prochlorperazine Allergy Intermediate Hives Verified 12/02/20 16:40 [From Compazine] metoclopramide [From Reglan] AdvReac Intermediate Anxiety Verified 12/02/20 16:40 nalbuphine [From Nubain] AdvReac Intermediate Change Verified 12/02/20 16:40 Mental Status Home Meds: Home Meds Citalopram Hydrobromide [Celexa] 40 mg PO DAILY 03/09/20 [History] Mv-Mn/Folic/Jas/Vit K/B Comp,C [Women's Daily Pack] 1 each PO DAILY 03/09/20 [History] L.acidoph,Paracasei, B.lactis [Probiotic] 1 cap PO DAILY 05/20/20 [History] Naproxen [Naprosyn] 500 mg PO Q12HR PRN #20 tab 12/02/20 [Rx] Naproxen [Naprosyn] 500 mg PO Q12HR PRN #20 tab 12/02/20 [Rx] oxyCODONE 5 mg PO Q3HR PRN 12/02/20 [History] Past Medical History HEENT History: Reports: Otitis Media, Other (See Below) Other HEENT History: Patient has had to have coldest stoma surgery on the right ear x2. She has had 4 sets of myringotomy tubes. Lot of pain in the mastoid process on the right side. 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: Musculoskeletal History: Reports: None Neurological History: Reports: Headaches, Chronic, Migraines Psychiatric History: Reports: ADHD, Anxiety, Depression Endocrine/Metabolic History: Reports: None Hematologic History: Reports: None Immunologic History: Reports: None Oncologic (Cancer) History: Reports: Cervix Dermatologic History: Reports: None - Infectious Disease History Infectious Disease History: Reports: Chicken Pox - Past Surgical History HEENT Surgical History: Reports: Myringotomy w Tube(s) Other HEENT Surgeries/Procedures: cholesteatoma has had 11 surgeries GI Surgical History: Reports: Cholecystectomy Female Surgical History: Reports: Tubal Ligation Social & Family History - Family History Family Medical History: No Pertinent Family History - Tobacco Use Tobacco Use Status *Q: Former Tobacco User Used Tobacco, but Quit: Yes Month/Year Tobacco Last Used: 11/2018 - Caffeine Use Caffeine Use: Reports: Coffee, Soda - Recreational Drug Use Recreational Drug Use: No - Living Situation & Occupation Living situation: Reports: Occupation: Employed ED ROS GENERAL - Review of Systems Review Of Systems: See Below Constitutional: Reports: No Symptoms HEENT: Reports: No Symptoms Respiratory: Reports: No Symptoms Cardiovascular: Reports: No Symptoms Endocrine: Reports: No Symptoms GI/Abdominal: Reports: Abdominal Pain, Nausea. Denies: Diarrhea, Vomiting : Reports: Flank Pain (left) ED EXAM, GI/ABD - Physical Exam Exam: See Below Exam Limited By: No Limitations General Appearance: Alert, No Apparent Distress Ears: Normal External Exam Nose: Normal Inspection Head: Atraumatic, Normocephalic Neck: Normal Inspection Respiratory/Chest: No Respiratory Distress, Lungs Clear, Normal Breath Sounds Cardiovascular: Regular Rate, Rhythm, No Edema, No Murmur GI/Abdominal Exam: Soft, No Organomegaly, No Mass, Tender (Moderate tenderness to the left abdomen) Back Exam: CVA Tenderness (L) Extremities: Normal Inspection Course - Vital Signs Last Recorded V/S: Last Vital Signs Temp 97.1 F 12/02/20 15:57 Pulse 100 12/02/20 15:57 Resp 20 12/02/20 15:57 BP 148/114 H 12/02/20 15:57 Pulse Ox 96 12/02/20 15:57 - Orders/Labs/Meds Orders: Active Orders 24 hr Category Date Time Status Influenza Vaccine Charge [RC] .DISCHARGE Care 12/02/20 16:36 Active Peripheral IV Care [RC] . DIRECTED Care 12/02/20 16:21 Active Abdomen Pelvis wo Cont [CT] Stat Exams 12/02/20 16:21 Taken Sodium Chloride 0.9% [Normal Saline] 1,000 ml Med 12/02/20 16:30 Active IV ASDIRECTED Sodium Chloride 0.9% [Saline Flush] Med 12/02/20 16:21 Active 10 ml FLUSH ASDIRECTED PRN ED Antiemetic Medication Reflex [OM.PC] Stat Oth 12/02/20 16:21 Ordered Peripheral IV Insertion Adult [OM.PC] Stat Oth 12/02/20 16:21 Ordered Medication Orders Sodium Chloride (Normal Saline) 1,000 mls @ 125 mls/hr IV ASDIRECTED DEDRA Sodium Chloride (Saline Flush) 10 ml FLUSH ASDIRECTED PRN PRN Reason: Keep Vein Open Labs: Laboratory Tests 12/02/20 12/02/20 12/02/20 Range/Units 16:24 17:57 17:57 WBC 7.93 (3.98-10.04) K/mm3 RBC 4.17 (3.98-5.22) M/mm3 Hgb 11.0 L (11.2-15.7) gm/dl Hct 35.6 (34.1-44.9) % MCV 85.4 D (79.4-94.8) fl MCH 26.4 (25.6-32.2) pg MCHC 30.9 L (32.2-35.5) g/dl RDW Std Deviation 49.0 H (36.4-46.3) fL Plt Count 222 (182-369) K/mm3 MPV 8.9 L (9.4-12.3) fl Neut % (Auto) 65.0 (34.0-71.1) % Lymph % (Auto) 26.4 (19.3-51.7) % [place] % (Auto) 6.7 (4.7-12.5) % Eos % (Auto) 1.0 (0.7-5.8) Baso % (Auto) 0.6 (0.1-1.2) % Neut # (Auto) 5.16 (1.56-6.13) K/mm3 Lymph # (Auto) 2.09 (1.18-3.74) K/mm3 [place] # (Auto) 0.53 H (0.24-0.36) K/mm3 Eos # (Auto) 0.08 (0.04-0.36) K/mm3 Baso # (Auto) 0.05 (0.01-0.08) K/mm3 Sodium 142 (136-145) mEq/L Potassium 4.6 (3.5-5.1) mEq/L Chloride 106 (98-107) mEq/L Carbon Dioxide 24 (21-32) mEq/L Anion Gap 16.6 H (5-15) BUN 22 H (7-18) mg/dL Creatinine 1.2 H (0.55-1.02) mg/dL Est Cr Clr Drug Dosing 53.28 mL/min Estimated GFR (MDRD) 50 (>60) mL/min BUN/Creatinine Ratio 18.3 H (14-18) Glucose 90 (74-106) mg/dL Calcium 9.2 (8.5-10.1) mg/dL Total Bilirubin 0.4 (0.2-1.0) mg/dL AST 35 (15-37) U/L ALT 49 (14-59) U/L Alkaline Phosphatase 398 H (46-116) U/L Total Protein 7.0 (6.4-8.2) g/dl Albumin 2.7 L (3.4-5.0) g/dl Globulin 4.3 gm/dL Albumin/Globulin Ratio 0.6 L (1-2) Lipase 43 L (73-393) U/L HCG, Qual (NEGATIVE) Urine Color [place] H (Yellow) Urine Appearance Cloudy H (Clear) Urine pH 6.5 (5.0-8.0) Ur Specific [place] 1.025 (1.005-1.030) Urine Protein 3+ H (Negative) Urine Glucose (UA) Negative (Negative) Urine Ketones Negative (Negative) Urine Occult Blood 3+ H (Negative) Urine Nitrite Negative (Negative) Urine Bilirubin 1+ H (Negative) Urine Urobilinogen 0.2 (0.2-1.0) Ur Leukocyte Esterase Negative (Negative) Urine RBC >100 H (0-5) /hpf Urine WBC 5-10 H (0-5) /hpf Ur Squamous Epith Cells 5-10 H (0-5) /hpf Urine Bacteria Few (FEW) /hpf Urine Mucus Few (FEW) /hpf 12/02/20 Range/Units 17:57 WBC (3.98-10.04) K/mm3 RBC (3.98-5.22) M/mm3 Hgb (11.2-15.7) gm/dl Hct (34.1-44.9) % MCV (79.4-94.8) fl MCH (25.6-32.2) pg MCHC (32.2-35.5) g/dl RDW Std Deviation (36.4-46.3) fL Plt Count (182-369) K/mm3 MPV (9.4-12.3) fl Neut % (Auto) (34.0-71.1) % Lymph % (Auto) (19.3-51.7) % [place] % (Auto) (4.7-12.5) % Eos % (Auto) (0.7-5.8) Baso % (Auto) (0.1-1.2) % Neut # (Auto) (1.56-6.13) K/mm3 Lymph # (Auto) (1.18-3.74) K/mm3 [place] # (Auto) (0.24-0.36) K/mm3 Eos # (Auto) (0.04-0.36) K/mm3 Baso # (Auto) (0.01-0.08) K/mm3 Sodium (136-145) mEq/L Potassium (3.5-5.1) mEq/L Chloride (98-107) mEq/L Carbon Dioxide (21-32) mEq/L Anion Gap (5-15) BUN (7-18) mg/dL Creatinine (0.55-1.02) mg/dL Est Cr Clr Drug Dosing mL/min Estimated GFR (MDRD) (>60) mL/min BUN/Creatinine Ratio (14-18) Glucose (74-106) mg/dL Calcium (8.5-10.1) mg/dL Total Bilirubin (0.2-1.0) mg/dL AST (15-37) U/L ALT (14-59) U/L Alkaline Phosphatase (46-116) U/L Total Protein (6.4-8.2) g/dl Albumin (3.4-5.0) g/dl Globulin gm/dL Albumin/Globulin Ratio (1-2) Lipase (73-393) U/L HCG, Qual Negative (NEGATIVE) Urine Color (Yellow) Urine Appearance (Clear) Urine pH (5.0-8.0) Ur Specific [place] (1.005-1.030) Urine Protein (Negative) Urine Glucose (UA) (Negative) Urine Ketones (Negative) Urine Occult Blood (Negative) Urine Nitrite (Negative) Urine Bilirubin (Negative) Urine Urobilinogen (0.2-1.0) Ur Leukocyte Esterase (Negative) Urine RBC (0-5) /hpf Urine WBC (0-5) /hpf Ur Squamous Epith Cells (0-5) /hpf Urine Bacteria (FEW) /hpf Urine Mucus (FEW) /hpf Meds: Medications Generic Name Dose Route Start Last Admin Trade Name Freq PRN Reason Stop Dose Admin Sodium Chloride 1,000 mls @ 125 mls/hr 12/02/20 16:30 Normal Saline IV ASDIRECTED DEDRA Sodium Chloride 10 ml 12/02/20 16:21 Saline Flush FLUSH ASDIRECTED PRN Keep Vein Open Discontinued Medications Generic Name Dose Route Start Last Admin Trade Name Freq PRN Reason Stop Dose Admin Influenza Virus Vaccine 60 mcg 12/02/20 16:45 Fluzone Quad Syringe IM 12/02/20 16:46 .ONCE ONE Ketorolac Tromethamine 30 mg 12/02/20 17:21 Toradol IVPUSH 12/02/20 17:22 ONETIME ONE Ketorolac Tromethamine 30 mg 12/02/20 18:10 12/02/20 18:00 Toradol IM 12/02/20 18:11 30 mg ONETIME ONE Administration Ondansetron HCl 4 mg 12/02/20 16:21 Zofran IVPUSH 12/02/20 16:22 ONETIME ONE Oxycodone HCl 5 mg 12/02/20 16:22 Oxycodone PO 12/02/20 16:23 ONETIME ONE - Re-Assessments/Exams Free Text/Narrative Re-Assessment/Exam: 12/02/20 17:03 I ordered an IV NS at 125mL/hr, zofran 4mg IV, oxycodone 5mg PO, labs, UA and a CT of her abdomen and pelvis without contrast. 12/02/20 18:34 My nurses could not get an IV. They gave her zofran orally and toradol IM. She did not want the oxycodone. The place where she is staying does not want her to have any opioids. Her Hgb was a little low at 11. Her platelets were normal at 222. Her anion gap was elevated at 16.1. Her creatinine is elevated at 1.2. Her alk phos is elevated at 398. Her lipase is low at 43. Her UA shows blood but no UTI. I am waiting for her CT results. 12/02/20 18:[address] shows tiny nonobstructing calculus upper pole left kidney. Hepatocellular disease as evidenced by marked hepatomegaly, irregular liver contour, ascites, and suggestion of some upper abdominal collateral vessels. Subcutaneous soft tissue edema as well as mesenteric edema likely related to edematous state. Cardiomegaly with small left effusion and portable minimal pulmonary edema. At this point I am not sure why she is having the pain and hematuria. This could have been a stone. She cannot take anything stronger for pain. I will get her on some naprosyn. Departure - Departure Time of Disposition: 19:05 Disposition: Home, Self-Care 01 Condition: Good Clinical Impression: Kidney stone on left side, Enlarged liver Hematuria Qualifiers: Hematuria type: gross Qualified Code(s): R31.0 - Gross hematuria - Discharge Information *PRESCRIPTION DRUG MONITORING PROGRAM REVIEWED*: Not Applicable *COPY OF PRESCRIPTION DRUG MONITORING REPORT IN PATIENT JOSE DAVID: Not Applicable Prescriptions: Naproxen [Naprosyn] 500 mg PO Q12HR PRN #20 tab PRN Reason: Pain Naproxen [Naprosyn] 500 mg PO Q12HR PRN #20 tab PRN Reason: Pain Referrals: Alissa Rutledge CONSTRUCTION INSPECTOR [Primary Care Provider] - 1 Week Forms: ED Department Discharge Additional Instructions: Take the naprosyn ever 12 hours as needed for pain. Follow up with Kacey Rutledge within a week. Please return if you are worse. Sepsis Event Note (ED) - Evaluation Sepsis Screening Result: No Definite Risk - Focused Exam Vital Signs: Vital Signs Temp Pulse Resp BP Pulse Ox 12/02/20 15:57 97.1 F 100 20 148/114 H 96 - My Orders Last 24 Hours: My Active Orders 12/02/20 16:21 Peripheral IV Care [RC] . DIRECTED Abdomen Pelvis wo Cont [CT] Stat Sodium Chloride 0.9% [Saline Flush] 10 ml FLUSH ASDIRECTED PRN ED Antiemetic Medication Reflex [OM.PC] Stat Peripheral IV Insertion Adult [OM.PC] Stat 12/02/20 16:30 Sodium Chloride 0.9% [Normal Saline] 1,000 ml IV ASDIRECTED 12/02/20 16:36 Influenza Vaccine Charge [RC] .DISCHARGE - Assessment/Plan Last 24 Hours: My Active Orders 12/02/20 16:21 Peripheral IV Care [RC] . DIRECTED Abdomen Pelvis wo Cont [CT] Stat Sodium Chloride 0.9% [Saline Flush] 10 ml FLUSH ASDIRECTED PRN ED Antiemetic Medication Reflex [OM.PC] Stat Peripheral IV Insertion Adult [OM.PC] Stat 12/02/20 16:30 Sodium Chloride 0.9% [Normal Saline] 1,000 ml IV ASDIRECTED 12/02/20 16:36 Influenza Vaccine Charge [RC] .DISCHARGE
[2020-12-02] MEDS ORDERED: Ketorolac 30 MG/ML SDV IVPUSH ONE (17:21)
[2020-12-02] MEDS ORDERED: Ketorolac 30 MG/ML SDV IM ONE (18:10)
--- NOTE | 2020-12-03 06:52 | CT ---
CT abdomen and pelvis Technique: Multiple axial sections were obtained from above the dome of the diaphragm inferiorly through the pubic symphysis. Intravenous and oral contrast was not utilized. Study was performed as a renal stone protocol. Comparison: No prior CT abdomen or pelvis study is available. Findings: Kidneys show a very small nonobstructing calculus within the mid to upper left kidney measuring about 2-3 mm. No other abnormal calcifications are seen within the kidneys. No ureteral dilatation or ureteral stone is seen. Small left-sided pleural effusion is seen which appears to be loculated. Nodular density is seen within the right lung base touching the pleural margin measuring approximately 1.3 cm. Heart is partially visualized and appears enlarged. Scattered areas of parenchymal scarring are believed to be present within both lung bases. Liver is enlarged. Spleen measures at the upper limits of normal. Adrenal glands show no discrete nodule. No discrete abnormality within the pancreas is appreciated. Surgical clips are noted from prior cholecystectomy. Abdominal aorta shows no aneurysm. Slight atherosclerotic calcification is seen with no retroperitoneal adenopathy being noted. No pelvic mass or adenopathy is seen. There is a mild amount of free fluid being seen within the pelvis. Appendix is seen which is normal in size. Bone window settings were reviewed which show no acute osseous finding. Impression: 1. Small nonobstructing calculus within the left kidney. No ureteral dilatation or ureteral stone is appreciated. 2. 1.3 nonspecific nodular density within the right lung base. 3. Small loculated pleural effusion within the left lung base. Scattered areas of scarring are seen within both lung bases. 4. Heart is felt to be slightly enlarged. 5. Hepatomegaly and prior cholecystectomy. 6. Small amount of fluid within the pelvis possibly representing increased physiologic fluid. Diagnostic code #9
== END 2020-12-02 19:34 | disposition home or self-care (01) ==
LOC: JD.ED 15:44
DX: N20.0 Calculus of kidney (principal); R16.0 Hepatomegaly, not elsewhere classified; R31.0 Gross hematuria; Z87.891 Personal history of nicotine dependence; Z88.1 Allergy status to other antibiotic agents; Z88.5 Allergy status to narcotic agent; Z88.8 Allergy status to other drugs, medicaments and biological substances
CPT/HCPCS: 36415; 74176; 80053; 81001; 83690; 84703; 85025; 96372; 99284; J1885

== ENCOUNTER 2020-12-18 08:25 | Emergency (ER) | payer MEDICAID ==
--- NOTE | 2020-12-18 08:45 | EDM.PDOC ---
ED HPI GENERAL MEDICAL PROBLEM - General Chief Complaint: Gastrointestinal Problem Stated Complaint: BLOOD IN STOOL Time Seen by Provider: 12/18/20 08:45 - History of Present Illness INITIAL COMMENTS - FREE TEXT/NARRATIVE: 40-year-old female presents the emergency room with worsening diarrhea now turning bloody, and worsening abdominal pain and distention. Patient was just diagnosed with C. difficile diarrhea following extensive antibiotic course for endocarditis. The patient had a relapse and went back to using heroin this last July and developed a endocarditis. Over the last several weeks the patient has had worsening more frequent diarrhea. The patient was seen by her regular physician on Saturday and diagnosed with C. difficile. Early this morning approximately midnight to 1 AM she had worsening diarrhea and this became quite bloody. She noticed that she was having worsening distention as well. She is not had any fevers or chills. She has noticed increased discomfort Left Lower Abdominal Pain Score (Numeric/FACES): 8 - Related Data Allergies Allergy/AdvReac Type Severity Reaction Status Date / Time ciprofloxacin [From Cipro] Allergy Intermediate Rash Verified 12/18/20 08:39 ketorolac [From Toradol] Allergy Intermediate Hives Verified 12/18/20 08:39 prochlorperazine Allergy Intermediate Hives Verified 12/18/20 08:39 [From Compazine] metoclopramide [From Reglan] AdvReac Intermediate Anxiety Verified 12/18/20 08:39 nalbuphine [From Nubain] AdvReac Intermediate Change Verified 12/18/20 08:39 Mental Status Home Meds: Home Meds Citalopram Hydrobromide [Celexa] 40 mg PO DAILY 03/09/20 [History] L.acidoph,Paracasei, B.lactis [Probiotic] 1 cap PO DAILY 05/20/20 [History] Naproxen [Naprosyn] 500 mg PO Q12HR PRN #20 tab 12/02/20 [Rx] Past Medical History HEENT History: Reports: Otitis Media, Other (See Below) Other HEENT History: Patient has had to have coldest stoma surgery on the right ear x2. She has had 4 sets of myringotomy tubes. Lot of pain in the mastoid process on the right side. 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 History: Reports: None Neurological History: Reports: Headaches, Chronic, Migraines Psychiatric History: Reports: ADHD, Anxiety, Depression Endocrine/Metabolic History: Reports: None Hematologic History: Reports: None Immunologic History: Reports: None Oncologic (Cancer) History: Reports: Cervix Dermatologic History: Reports: None - Infectious Disease History Infectious Disease History: Reports: C-Difficile, Chicken Pox - Past Surgical History HEENT Surgical History: Reports: Myringotomy w Tube(s) Other HEENT Surgeries/Procedures: cholesteatoma has had 11 surgeries GI Surgical History: Reports: Cholecystectomy Female Surgical History: Reports: Tubal Ligation Social & Family History - Family History Family Medical History: No Pertinent Family History - Tobacco Use Tobacco Use Status *Q: Current Every Day Tobacco User Years of Tobacco use: 25 Packs/Tins Daily: 0.7 - Caffeine Use Caffeine Use: Reports: Coffee - Recreational Drug Use Recreational Drug Use: Yes Recreational Drug Type: Reports: Heroin, Methamphetamine - Living Situation & Occupation Living situation: Reports: Occupation: Employed ED ROS GENERAL - Review of Systems Review Of Systems: See Below Constitutional: Reports: No Symptoms HEENT: Reports: No Symptoms Respiratory: Reports: No Symptoms Cardiovascular: Reports: No Symptoms GI/Abdominal: Reports: Abdominal Pain, Bloody Stool, Diarrhea : Reports: No Symptoms, Urinary Retention Skin: Reports: No Symptoms Neurological: Reports: No Symptoms Hematologic/Lymphatic: Reports: No Symptoms Immunologic: Reports: No Symptoms ED EXAM, GENERAL - Physical Exam Exam: See Below Exam Limited By: No Limitations General Appearance: Alert, No Apparent Distress Head: Atraumatic, Normocephalic Neck: Normal Inspection, Supple, Non-Tender, Full Range of Motion Respiratory/Chest: No Respiratory Distress, Lungs Clear, Normal Breath Sounds Cardiovascular: Regular Rate, Rhythm, No Edema, No Murmur (No murmur appreciated at this moment) GI/Abdominal: Normal Bowel Sounds, Other (Moderate distention diffuse nonspecific tenderness no rebound tenderness). No: No Distention Course - Vital Signs Last Recorded V/S: Last Vital Signs Temp 36.6 C 12/18/20 08:31 Pulse 100 12/18/20 08:31 Resp 16 12/18/20 08:31 BP 169/118 H 12/18/20 08:31 Pulse Ox 99 12/18/20 08:31 - Orders/Labs/Meds Orders: Active Orders 24 hr Category Date Time Status Abdomen 2V AP Flat Upright [CR] Stat Exams 12/18/20 09:37 Taken Labs: Laboratory Tests 12/18/20 12/18/20 12/18/20 Range/Units 09:53 09:53 09:53 WBC 8.88 (3.98-10.04) K/mm3 RBC 4.97 (3.98-5.22) M/mm3 Hgb 12.7 D (11.2-15.7) gm/dl Hct 41.2 (34.1-44.9) % MCV 82.9 (79.4-94.8) fl MCH 25.6 (25.6-32.2) pg MCHC 30.8 L (32.2-35.5) g/dl RDW Std Deviation 48.6 H (36.4-46.3) fL Plt Count 302 D (182-369) K/mm3 MPV 9.3 L (9.4-12.3) fl Neut % (Auto) 67.4 (34.0-71.1) % Lymph % (Auto) 24.2 (19.3-51.7) % [place] % (Auto) 5.7 (4.7-12.5) % Eos % (Auto) 1.9 (0.7-5.8) Baso % (Auto) 0.6 (0.1-1.2) % Neut # (Auto) 5.98 (1.56-6.13) K/mm3 Lymph # (Auto) 2.15 (1.18-3.74) K/mm3 [place] # (Auto) 0.51 H (0.24-0.36) K/mm3 Eos # (Auto) 0.17 (0.04-0.36) K/mm3 Baso # (Auto) 0.05 (0.01-0.08) K/mm3 Manual Slide Review Abnormal smear PT 11.0 (9.7-12.0) SECONDS INR 1.03 APTT (21.7-31.4) SECONDS Sodium 143 (136-145) mEq/L Potassium 4.5 (3.5-5.1) mEq/L Chloride 110 H (98-107) mEq/L Carbon Dioxide 19 L (21-32) mEq/L Anion Gap 18.5 H (5-15) BUN 21 H (7-18) mg/dL Creatinine 0.9 (0.55-1.02) mg/dL Est Cr Clr Drug Dosing 71.03 mL/min Estimated GFR (MDRD) > 60 (>60) mL/min BUN/Creatinine Ratio 23.3 H (14-18) Glucose 86 (74-106) mg/dL Calcium 8.9 (8.5-10.1) mg/dL Total Bilirubin 0.5 (0.2-1.0) mg/dL AST 31 (15-37) U/L ALT 39 (14-59) U/L Alkaline Phosphatase 243 H (46-116) U/L Total Protein 6.8 (6.4-8.2) g/dl Albumin 3.0 L (3.4-5.0) g/dl Globulin 3.8 gm/dL Albumin/Globulin Ratio 0.8 L (1-2) 12/18/20 Range/Units 09:53 WBC (3.98-10.04) K/mm3 RBC (3.98-5.22) M/mm3 Hgb (11.2-15.7) gm/dl Hct (34.1-44.9) % MCV (79.4-94.8) fl MCH (25.6-32.2) pg MCHC (32.2-35.5) g/dl RDW Std Deviation (36.4-46.3) fL Plt Count (182-369) K/mm3 MPV (9.4-12.3) fl Neut % (Auto) (34.0-71.1) % Lymph % (Auto) (19.3-51.7) % [place] % (Auto) (4.7-12.5) % Eos % (Auto) (0.7-5.8) Baso % (Auto) (0.1-1.2) % Neut # (Auto) (1.56-6.13) K/mm3 Lymph # (Auto) (1.18-3.74) K/mm3 [place] # (Auto) (0.24-0.36) K/mm3 Eos # (Auto) (0.04-0.36) K/mm3 Baso # (Auto) (0.01-0.08) K/mm3 Manual Slide Review PT (9.7-12.0) SECONDS INR APTT 22.5 (21.7-31.4) SECONDS Sodium (136-145) mEq/L Potassium (3.5-5.1) mEq/L Chloride (98-107) mEq/L Carbon Dioxide (21-32) mEq/L Anion Gap (5-15) BUN (7-18) mg/dL Creatinine (0.55-1.02) mg/dL Est Cr Clr Drug Dosing mL/min Estimated GFR (MDRD) (>60) mL/min BUN/Creatinine Ratio (14-18) Glucose (74-106) mg/dL Calcium (8.5-10.1) mg/dL Total Bilirubin (0.2-1.0) mg/dL AST (15-37) U/L ALT (14-59) U/L Alkaline Phosphatase (46-116) U/L Total Protein (6.4-8.2) g/dl Albumin (3.4-5.0) g/dl Globulin gm/dL Albumin/Globulin Ratio (1-2) Meds: Medications Discontinued Medications Generic Name Dose Route Start Last Admin Trade Name Freq PRN Reason Stop Dose Admin Metronidazole 500 mg 12/18/20 09:38 12/18/20 10:29 Flagyl PO 12/18/20 09:39 500 mg ONETIME ONE Administration Ondansetron HCl 8 mg 12/18/20 09:47 12/18/20 10:00 Zofran Odt PO 12/18/20 09:48 4 mg ONETIME ONE Administration - Re-Assessments/Exams Free Text/Narrative Re-Assessment/Exam: 12/18/20 11:13 Abdominal x-rays did not show any acute changes. She is dry on her labs CBC looks stable. Feels quite a bit better after getting Zofran and drinking 1-1/2 Powerade's. The patient think she will be okay at home. I would have her hold off on her probiotics for several days and then restart them 3 days into the antibiotics. The patient will get her Flagyl filled apparently this is already been sent. I have instructed her no uncertain terms to call us immediately if it is not available. Departure - Departure Time of Disposition: 11:17 Disposition: Home, Self-Care 01 Clinical Impression: Clostridioides difficile diarrhea, Dehydration - Discharge Information Referrals: Kermit Haynes MD [Primary Care Provider] - Forms: ED Department Discharge Additional Instructions: Return to the emergency room with any questions problems or worsening symptoms. I have sent a prescription for Zofran this is the nausea medication use as needed. It is essential you are able to take plenty of oral fluids over the next 1 to 2 days. Your fluid status will be approaching normal when you need to void every hour to hour and a half. 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 If for any reason is not at the pharmacy call me and I will send a prescription for it you should take 500 mg 3 times a day for 10 days. It is essential you do not miss any doses and you complete the full 10-day course. Sepsis Event Note (ED) - Evaluation Sepsis Screening Result: No Definite Risk - Focused Exam Vital Signs: Vital Signs Temp Pulse Resp BP Pulse Ox 12/18/20 08:31 36.6 C 100 16 169/118 H 99 - My Orders Last 24 Hours: My Active Orders 12/18/20 09:37 Abdomen 2V AP Flat Upright [CR] Stat - Assessment/Plan Last 24 Hours: My Active Orders 12/18/20 09:37 Abdomen 2V AP Flat Upright [CR] Stat
[2020-12-18] MEDS ORDERED: metroNIDAZOLE 500 MG Tab PO ONE (09:38)
[2020-12-18] MEDS ORDERED: Ondansetron 4 MG Tab.DIS PO ONE (09:47)
--- NOTE | 2020-12-18 16:07 | CR ---
Abdomen: Supine and upright views of the abdomen were obtained. Comparison: No prior abdominal x-rays are available. Slight cystic change is seen within the femoral head of the left hip which is most likely incidental. Surgical clips are seen from prior cholecystectomy. No acute osseous finding is seen. Bowel gas pattern is normal. No free air is seen. There is pleural thickening within the left lung base with adjacent pleural thickening. Impression: 1. Findings within the left lung base. Prior cholecystectomy is noted. 2. Nothing acute seen on supine and upright abdominal x-ray. Diagnostic code #2
== END 2020-12-18 11:45 | disposition home or self-care (01) ==
LOC: JD.ED 08:25
DX: A04.72 Enterocolitis due to Clostridium difficile, not specified as recurrent (principal); E86.0 Dehydration; Z88.1 Allergy status to other antibiotic agents; Z88.6 Allergy status to analgesic agent; Z88.8 Allergy status to other drugs, medicaments and biological substances; Z79.899 Other long term (current) drug therapy; Z72.0 Tobacco use
CPT/HCPCS: 36415; 74019; 80053; 85025; 85610; 85730; 99284; A9270

== ENCOUNTER 2021-03-20 18:15 | Emergency (ER) | payer MEDICAID ==
[2021-03-20] MEDS ORDERED: Ondansetron 4 MG/2 ML SDV IVPUSH ONE (19:08)
[2021-03-20] MEDS ORDERED: HYDROmorphone 0.5 MG/0.5 ML Syringe IVPUSH ONE (19:08)
[2021-03-20] MEDS ORDERED: Sodium Chloride 0.9% 10 ML Syringe FLUSH PRN (19:09)
[2021-03-20] MEDS ORDERED: Sodium Chloride 0.9% 1,000 ML IV SCH (19:15)
--- NOTE | 2021-03-20 19:22 | EDM.PDOC ---
ED HPI GENERAL MEDICAL PROBLEM - General Chief Complaint: ENT Problem Stated Complaint: ear pain Time Seen by Provider: 03/20/21 18:55 Source of Information: Reports: Patient, RN Notes Reviewed - History of Present Illness INITIAL COMMENTS - FREE TEXT/NARRATIVE: R ear pain for about the last 10 days. Has been using ear drops for about a week but pain getting worse and now drainage the last 2 or 3 days as well. NO fever or chills. Hx of chronic R ear problems. Had been hoping to avoid oral abx with hx of c dif. Right Jaw Pain Score (Numeric/FACES): 9 - Related Data Allergies Allergy/AdvReac Type Severity Reaction Status Date / Time ketorolac [From Toradol] Allergy Intermediate Hives Verified 03/20/21 18:39 prochlorperazine Allergy Intermediate Hives Verified 03/20/21 18:39 [From Compazine] metoclopramide [From Reglan] AdvReac Intermediate Anxiety Verified 03/20/21 18:39 nalbuphine [From Nubain] AdvReac Intermediate Change Verified 03/20/21 18:39 Mental Status Home Meds: Home Meds Loratadine 10 mg PO DAILY 03/20/21 [History] Nitroglycerin [Nitrostat] 0.4 mg SL ASDIRECTED PRN 03/20/21 [History] Ondansetron [Zofran ODT] 4 mg PO Q8HR PRN #10 tab.dis 03/20/21 [Rx] levoFLOXacin [Levaquin] 500 mg PO DAILY #10 tab 03/20/21 [Rx] Past Medical History HEENT History: Reports: Otitis Media, Other (See Below) Other HEENT History: Patient has had to have coldest stoma surgery on the right ear x2. She has had 4 sets of myringotomy tubes. Lot of pain in the mastoid process on the right side. 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: Reports: None Neurological History: Reports: Headaches, Chronic, Migraines Psychiatric History: Reports: Anxiety Endocrine/Metabolic History: Reports: None Hematologic History: Reports: None Immunologic History: Reports: None Oncologic (Cancer) History: Reports: Cervix Dermatologic History: Reports: None - Infectious Disease History Infectious Disease History: Reports: C-Difficile, Chicken Pox - Past Surgical History HEENT Surgical History: Reports: Myringotomy w Tube(s) Other HEENT Surgeries/Procedures: cholesteatoma has had 11 surgeries GI Surgical History: Reports: Cholecystectomy Female Surgical History: Reports: Tubal Ligation Social & Family History - Family History Family Medical History: No Pertinent Family History - Tobacco Use Tobacco Use Status *Q: Current Every Day Tobacco User Years of Tobacco use: 16 Packs/Tins Daily: 0.5 - Caffeine Use Caffeine Use: Reports: None - Recreational Drug Use Recreational Drug Use: Yes Drug Use in Last 12 Months: No Recreational Drug Type: Reports: Methamphetamine Recreational Drug Use Frequency: Not Used In Over 6 Months Recreational Drug Last Use: 2017 - Living Situation & Occupation Living situation: Reports: Occupation: Employed ED ROS GENERAL - Review of Systems Review Of Systems: See Below Constitutional: Denies: Fever, Chills HEENT: Reports: Ear Discharge, Ear Pain. Denies: Throat Pain Respiratory: Denies: Cough Cardiovascular: Denies: Chest Pain GI/Abdominal: Denies: Abdominal Pain, Nausea, Vomiting Musculoskeletal: Denies: Neck Pain Skin: Denies: Rash Neurological: Reports: Headache ED EXAM, NEURO - Physical Exam Exam: See Below General Appearance: Alert, Mild Distress Ears: Other (tender ant and inf to ear canal, no visible ear lobe swelling, no warmth or erythema of the ear lobe). No: Normal Canal (there is purulent fluid in the ear canal) Nose: Normal Inspection Throat/Mouth: Normal Inspection Head Exam: Atraumatic. No: Facial Swelling Neck: Supple, Lymphadenopathy (R) (ant. ) Respiratory/Chest: No Respiratory Distress Neurological: Alert, No Motor/Sensory Deficits Extremities: Normal Inspection Skin Exam: Warm, Dry, Normal Color, No Rash Course - Vital Signs Last Recorded V/S: Last Vital Signs Temp 98.2 F 03/20/21 18:35 Pulse 88 03/20/21 18:35 Resp 14 03/20/21 18:35 BP 131/101 H 03/20/21 18:35 Pulse Ox 100 03/20/21 18:35 - Orders/Labs/Meds Orders: Active Orders 24 hr Category Date Time Status Peripheral IV Insertion Adult [OM.PC] Stat Oth 03/20/21 19:08 Ordered Meds: Medications Discontinued Medications Generic Name Dose Route Start Last Admin Trade Name Freq PRN Reason Stop Dose Admin Hydromorphone HCl 0.5 mg 03/20/21 19:08 03/20/21 19:32 Hydromorphone 0.5 Mg/0.5 Ml Syringe IVPUSH 03/20/21 19:09 0.5 mg ONETIME ONE Administration Sodium Chloride 1,000 mls @ 999 mls/hr 03/20/21 19:15 03/20/21 19:32 Normal Saline IV 999 mls/hr ONETIME DEDRA Administration Ondansetron HCl 4 mg 03/20/21 19:08 03/20/21 19:32 Ondansetron 4 Mg/2 Ml Sdv IVPUSH 03/20/21 19:09 4 mg ONETIME ONE Administration Sodium Chloride 10 ml 03/20/21 19:09 03/20/21 20:51 Sodium Chloride 0.9% 10 Ml Syringe FLUSH 10 ml ASDIRECTED PRN Administration Keep Vein Open Departure - Departure Time of Disposition: 20:00 Disposition: Home, Self-Care 01 Condition: Fair Clinical Impression: Otitis externa Qualifiers: Otitis externa type: unspecified type Chronicity: acute Laterality: right Qualified Code(s): H60.501 - Unspecified acute noninfective otitis externa, right ear - Discharge Information Prescriptions: levoFLOXacin [Levaquin] 500 mg PO DAILY #10 tab Ondansetron [Zofran ODT] 4 mg PO Q8HR PRN #10 tab.dis PRN Reason: Nausea/Vomiting Instructions: Otitis Externa, [id number] Referrals: Kermit Haynes MD [Primary Care Provider] - Forms: ED Department Discharge Additional Instructions: You have been given levaquin antibiotic 500 mg IV, IV zofran and IV narcotic pain mediction. Do not drive until morning due to sedative effect. Prescriptions to continue levaquin 500 mg daily and zofran if needed for nausea or vomiting have been sent to [facility] on [address]. See your medical provider in about 4 to 5 days for recheck, call for appointment. Cipro antibiotic ear drops 3 drops twice daily for 10 days or until infection totally resolved. Probiotic twice daily. Drink plenty of fliuids. Simple diet as tolerated. Return to ED as needed. Sepsis Event Note (ED) - Evaluation Sepsis Screening Result: No Definite Risk - Focused Exam Vital Signs: Vital Signs Temp Pulse Resp BP Pulse Ox 03/20/21 18:35 98.2 F 88 14 131/101 H 100 - My Orders Last 24 Hours: My Active Orders 03/20/21 19:08 Peripheral IV Insertion Adult [OM.PC] Stat - Assessment/Plan Last 24 Hours: My Active Orders 03/20/21 19:08 Peripheral IV Insertion Adult [OM.PC] Stat
== END 2021-03-20 20:12 | disposition home or self-care (01) ==
LOC: JD.ED 18:15
DX: H60.501 Unspecified acute noninfective otitis externa, right ear (principal); Z88.6 Allergy status to analgesic agent; Z88.4 Allergy status to anesthetic agent; Z88.8 Allergy status to other drugs, medicaments and biological substances; Z72.0 Tobacco use
CPT/HCPCS: 96374; 96375; 99282; J1170; J2405; J7030; 99283

== ENCOUNTER 2021-03-28 11:46 | Emergency (ER) | payer MEDICAID ==
[2021-03-28] MEDS ORDERED: HYDROmorphone 0.5 MG/0.5 ML Syringe IVPUSH ONE (12:41)
[2021-03-28] MEDS ORDERED: Sodium Chloride 0.9% 1,000 ML IV ONE (12:41)
[2021-03-28] MEDS ORDERED: Ondansetron 4 MG/2 ML SDV IVPUSH ONE (12:41)
--- NOTE | 2021-03-28 13:41 | EDM.PDOC ---
ED HPI GENERAL MEDICAL PROBLEM - General Chief Complaint: Headache Stated Complaint: HEADACHE/VOMITING/RIGHT EAR PAIN Time Seen by Provider: 03/28/21 12:06 Source of Information: Reports: Patient History Limitations: Reports: No Limitations - History of Present Illness INITIAL COMMENTS - FREE TEXT/NARRATIVE: 40-year-old female presents the emergency department today with right ear pain radiating into her jaw and complaints of a migraine headache. Patient does have a history of migraine headache and has been treated in the emergency department on numerous visits. She also has a history of recurrent otitis media. She was last seen and treated in the emergency department on March 20, 2021. At that time she was started on Levaquin 500 mg daily for 10 days. Patient states she is still taking this medication as well as Cipro antibiotic drops, however she states that she has developed a migraine headache 3 days ago and it is still present today. She has had nausea and vomiting associated with this. She has photophobia and phonophobia associated with this. She denies any recent fever chills, abdominal pain or diarrhea. She also states that within the last couple of days she had major dental work completed on the right side of her upper teeth. She states that her right ear pain is radiating into her jaw where her dental work was completed. Patient states that tomorrow she is having CLEMENTE to evaluate her heart valves as she was treated for endocarditis October 15 at [facility] in [place]. She was required to have the dental work completed prior to having this done. Headache Pain Score (Numeric/FACES): 8 - Related Data Allergies Allergy/AdvReac Type Severity Reaction Status Date / Time ketorolac [From Toradol] Allergy Intermediate Hives Verified 03/28/21 12:01 prochlorperazine Allergy Intermediate Hives Verified 03/28/21 12:01 [From Compazine] metoclopramide [From Reglan] AdvReac Intermediate Anxiety Verified 03/28/21 12:01 nalbuphine [From Nubain] AdvReac Intermediate Change Verified 03/28/21 12:01 Mental Status Home Meds: Home Meds Loratadine 10 mg PO DAILY 03/20/21 [History] Nitroglycerin [Nitrostat] 0.4 mg SL ASDIRECTED PRN 03/20/21 [History] Ondansetron [Zofran ODT] 4 mg PO Q8HR PRN #10 tab.dis 03/20/21 [Rx] levoFLOXacin [Levaquin] 500 mg PO DAILY #10 tab 03/20/21 [Rx] Past Medical History HEENT History: Reports: Otitis Media, Other (See Below) Other HEENT History: Patient has had to have coldest stoma surgery on the right ear x2. She has had 4 sets of myringotomy tubes. Lot of pain in the mastoid process on the right side. 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: Musculoskeletal History: Reports: None Neurological History: Reports: Headaches, Chronic, Migraines Psychiatric History: Reports: Anxiety Endocrine/Metabolic History: Reports: None Hematologic History: Reports: None Immunologic History: Reports: None Oncologic (Cancer) History: Reports: Cervix Dermatologic History: Reports: None - Infectious Disease History Infectious Disease History: Reports: C-Difficile, Chicken Pox - Past Surgical History HEENT Surgical History: Reports: Myringotomy w Tube(s) Other HEENT Surgeries/Procedures: cholesteatoma has had 11 surgeries GI Surgical History: Reports: Cholecystectomy Female Surgical History: Reports: Tubal Ligation Social & Family History - Family History Family Medical History: No Pertinent Family History - Tobacco Use Tobacco Use Status *Q: Never Tobacco User - Caffeine Use Caffeine Use: Reports: None - Recreational Drug Use Recreational Drug Use: No - Living Situation & Occupation Living situation: Reports: Occupation: Employed ED ROS GENERAL - Review of Systems Review Of Systems: Comprehensive ROS is negative, except as noted in HPI. - Physical Exam Exam: See Below Exam Limited By: No Limitations General Appearance: Alert, WD/WN, Mild Distress Eye Exam: Bilateral Eye: PERRL Ears: Normal External Exam, Hearing Grossly Normal Nose: Normal Inspection Throat/Mouth: Normal Inspection, Normal Lips, Normal Voice, No Airway Compromise Head Exam: Atraumatic, Normocephalic Neck: Normal Inspection, Supple, Non-Tender. No: Lymphadenopathy (L), Lymphadenopathy (R) Respiratory/Chest: No Respiratory Distress, Lungs Clear, Normal Breath Sounds, No Accessory Muscle Use, Chest Non-Tender Cardiovascular: Normal Peripheral Pulses, Regular Rate, Rhythm, No Edema, No Murmur GI/Abdominal: Normal Bowel Sounds, Soft, Non-Tender, No Distention (Female) Exam: Deferred Rectal (Female) Exam: Deferred Neuro Exam (Abbreviated): Alert, Oriented, Normal Cognition Back Exam: Normal Inspection Extremities: Normal Inspection Psychiatric: Normal Affect, Normal Mood Skin Exam: Warm, Dry, Intact, Normal Color, No Rash Course - Vital Signs Text/Narrative:: Upon assessment, the patient does have photophobia and phonophobia. She describes her headache pain as generalized and throbbing. She states every step that she takes causes her to have increased severity of pain. She also reports severe pain to her right ear. Which radiates into her jaw. Evaluation of left tympanic membrane is unremarkable. Was not fully able to visualize right tympanic membrane as even tugging on the external ear causes her significant amount of distress due to the pain in her ear canal. I have ordered for the patient to receive 1 L of IV fluids to treat the migraine headaches, Zofran for the nausea as patient is allergic to Reglan, and Dilaudid as patient is allergic to Toradol to abort the migraine headache. Will attempt to revisualize the right tympanic membrane once the patient has had some pain medication on board. Last Recorded V/S: Last Vital Signs Temp 98.2 F 03/28/21 11:59 Pulse 89 03/28/21 11:59 Resp 16 03/28/21 11:59 BP 101/79 03/28/21 11:59 Pulse Ox 98 03/28/21 11:59 - Orders/Labs/Meds Meds: Medications Discontinued Medications Generic Name Dose Route Start Last Admin Trade Name Maria Esther PRN Reason Stop Dose Admin Hydromorphone HCl 0.5 mg 03/28/21 12:41 03/28/21 13:55 Hydromorphone 0.5 Mg/0.5 Ml Syringe IVPUSH 03/28/21 12:42 0.5 mg ONETIME ONE Administration Sodium Chloride 1,000 mls @ 999 mls/hr 03/28/21 12:41 03/28/21 13:55 Normal Saline IV 03/28/21 13:41 999 mls/hr ONETIME ONE Administration Ondansetron HCl 4 mg 03/28/21 12:41 03/28/21 13:55 Ondansetron 4 Mg/2 Ml Sdv IVPUSH 03/28/21 12:42 4 mg ONETIME ONE Administration - Re-Assessments/Exams Free Text/Narrative Re-Assessment/Exam: 03/28/21 15:16 Patient states that she is feeling a little better. She states nausea is gone however she is still having some discomfort noted to her ear and right side of her gums. I believe that the patient likely has increased inflammation from the dental work that was completed causing radiation to her ear pain. She still has 4 to 5 days left of her Levaquin and is still using the Cipro drops. She will be discharged home and she has been instructed to continue taking her antibiotics. I have advised her to follow-up with her primary care provider as soon as she has completed her antibiotic course. Departure - Departure Time of Disposition: 15:17 Disposition: Home, Self-Care 01 Condition: Good Clinical Impression: Migraine External otitis of right ear Qualifiers: Otitis externa type: unspecified type Chronicity: unspecified Qualified Code(s): H60.91 - Unspecified otitis externa, right ear - Discharge Information Referrals: Kermit Haynes MD [Primary Care Provider] - Forms: ED Department Discharge Additional Instructions: You were seen in the emergency department today with complaints of a migraine headache and ear pain. You received IV fluids, pain medications and nausea medication to treat the migraine headache and this did seem to help some. You do however still complain of pain to your right ear. I was not able to visualize your tympanic membrane due to pain upon assessment and the swelling noted in your ear canal. You will need to continue taking your oral antibiotic as well as you are antibiotic drops that you are using to treat the infection in your ear. It is strongly recommended that you follow-up with your primary care provider once you have completed your course of antibiotics to reevaluate the infection. Should your condition worsen or change, do not hesitate returning to the emergency department. Sepsis Event Note (ED) - Evaluation Sepsis Screening Result: No Definite Risk - Focused Exam Vital Signs: Vital Signs Temp Pulse Resp BP Pulse Ox 03/28/21 11:59 98.2 F 89 16 101/79 98
--- NOTE | 2021-03-28 13:58 | PCM.SN.2 ---
- Free Text/Narrative Note: called to ER to insert PIV. 2 attempts unsuccessful upper extremities. pt then mentions last time she was in ER she had a PIV in her foot that was easy to place. Then attempted right foot/leg and success easily. 24g PIV secured. RN informed about it and to secure it with more tape.
== END 2021-03-28 15:45 | disposition home or self-care (01) ==
LOC: JD.ED 11:46
DX: G43.909 Migraine, unspecified, not intractable, without status migrainosus (principal); H60.91 Unspecified otitis externa, right ear
CPT/HCPCS: 96374; 96375; 99283; J1170; J2405; J7030; 36410

== ENCOUNTER 2021-04-02 21:49 | Emergency (ER) | payer MEDICAID ==
--- NOTE | 2021-04-02 22:10 | EDM.PDOC ---
ED HPI GENERAL MEDICAL PROBLEM - General Chief Complaint: General Stated Complaint: heart problems Time Seen by Provider: 04/02/21 22:09 - History of Present Illness INITIAL COMMENTS - FREE TEXT/NARRATIVE: 40-year-old female presents the emergency room with speech difficulty. She was last normal at 9:40 PM our time. The patient did develop difficulty saying what she was thinking. The patient has not had problems like this in the past. 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 This was diagnosed and treated back in September 2020. She is scheduled to go back in for another procedure very soon and is anticipating a valve replacement. She has not had any fevers or chills recently. The patient is sober not using any drugs or alcohol at this time. Patient denies any other problems. Prior to this occurrence this evening the patient was doing fine. Headache Pain Score (Numeric/FACES): 9 - Related Data Allergies Allergy/AdvReac Type Severity Reaction Status Date / Time ketorolac [From Toradol] Allergy Severe Hives Verified 04/02/21 21:59 prochlorperazine Allergy Severe Hives Verified 04/02/21 21:59 [From Compazine] metoclopramide [From Reglan] AdvReac Severe Anxiety Verified 04/02/21 21:59 nalbuphine [From Nubain] AdvReac Severe Change Verified 04/02/21 21:59 Mental Status Home Meds: Home Meds Nitroglycerin [Nitrostat] 0.4 mg SL ASDIRECTED PRN 03/20/21 [History] Ondansetron [Zofran ODT] 4 mg PO Q8HR PRN #10 tab.dis 03/20/21 [Rx] Past Medical History HEENT History: Reports: Otitis Media, Other (See Below) Other HEENT History: Patient has had to have coldest stoma surgery on the right ear x2. She has had 4 sets of myringotomy tubes. Lot of pain in the mastoid process on the right side. 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: Musculoskeletal History: Reports: None Neurological History: Reports: Headaches, Chronic, Migraines Psychiatric History: Reports: Addiction, Anxiety Endocrine/Metabolic History: Reports: None Hematologic History: Reports: None Immunologic History: Reports: None Oncologic (Cancer) History: Reports: Cervix Dermatologic History: Reports: None - Infectious Disease History Infectious Disease History: Reports: C-Difficile, Chicken Pox - Past Surgical History HEENT Surgical History: Reports: Myringotomy w Tube(s) Other HEENT Surgeries/Procedures: cholesteatoma has had 11 surgeries GI Surgical History: Reports: Cholecystectomy Female Surgical History: Reports: Tubal Ligation Social & Family History - Family History Family Medical History: No Pertinent Family History - Caffeine Use Caffeine Use: Reports: Coffee - Recreational Drug Use Recreational Drug Use: No - Living Situation & Occupation Living situation: Reports: Occupation: Employed ED ROS GENERAL - Review of Systems Review Of Systems: See Below Constitutional: Reports: No Symptoms HEENT: Reports: No Symptoms Respiratory: Reports: No Symptoms Cardiovascular: Reports: No Symptoms Endocrine: Reports: No Symptoms GI/Abdominal: Reports: No Symptoms : Reports: No Symptoms Musculoskeletal: Reports: No Symptoms Skin: Reports: No Symptoms Neurological: Reports: Change in Speech Psychiatric: Reports: No Symptoms ED EXAM, GENERAL - Physical Exam Exam: See Below Exam Limited By: No Limitations General Appearance: Alert, No Apparent Distress Head: Atraumatic, Normocephalic Neck: Normal Inspection, Supple, Non-Tender, Full Range of Motion. No: Lymphadenopathy (L), Lymphadenopathy (R) Respiratory/Chest: No Respiratory Distress, Lungs Clear, Normal Breath Sounds Cardiovascular: Regular Rate, Rhythm, No Edema, Systolic Murmur (Early decrescendo systolic murmur heard best along the left sternal border 2/6) GI/Abdominal: Normal Bowel Sounds, Soft, No Mass Back Exam: Normal Inspection. No: CVA Tenderness (L), CVA Tenderness (R) Extremities: Normal Inspection, No Pedal Edema Neurological: Alert, Oriented, Normal Cognition, Other (The patient has obvious expressive aphasia strength testing is intact in all 4 extremities no areas of numbness cranial nerves otherwise intact) Skin Exam: Warm, Dry, Intact Lymphatic: No Adenopathy #1 Interpretation EKG Date: 04/02/21 Rhythm: NSR Rate (Beats/Min): 83 [place]: Normal P-Wave: Present QRS: Normal ST-T: Normal QT: Normal Comparison: Change From Previous EKG (Early transition pattern seen on 04/25/2020 not seen on this tracing) EKG Interpretation Comments: Normal EKG Course - Vital Signs Last Recorded V/S: Last Vital Signs Temp 36.6 C 04/02/21 21:56 Pulse 84 04/02/21 21:56 Resp 16 04/02/21 21:56 BP 145/109 H 04/02/21 21:56 Pulse Ox 99 04/02/21 21:56 - Orders/Labs/Meds Orders: Active Orders 24 hr Category Date Time Status Chest 1V Frontal [CR] Stat Exams 04/02/21 22:20 Taken Head wo Cont [CT] Stat Exams 04/02/21 22:22 Taken Labs: Laboratory Tests 04/02/21 04/02/21 04/02/21 Range/Units 23:15 23:30 23:30 WBC 9.31 (3.98-10.04) K/mm3 RBC 5.29 H (3.98-5.22) M/mm3 Hgb 14.5 D (11.2-15.7) gm/dl Hct 43.1 (34.1-44.9) % MCV 81.5 (79.4-94.8) fl MCH 27.4 (25.6-32.2) pg MCHC 33.6 (32.2-35.5) g/dl RDW Std Deviation 61.5 H (36.4-46.3) fL Plt Count 303 (182-369) K/mm3 MPV 9.3 L (9.4-12.3) fl Neut % (Auto) 53.3 (34.0-71.1) % Lymph % (Auto) 39.3 (19.3-51.7) % Will % (Auto) 5.2 (4.7-12.5) % Eos % (Auto) 1.5 (0.7-5.8) Baso % (Auto) 0.5 (0.1-1.2) % Neut # (Auto) 4.96 (1.56-6.13) K/mm3 Lymph # (Auto) 3.66 (1.18-3.74) K/mm3 Will # (Auto) 0.48 H (0.24-0.36) K/mm3 Eos # (Auto) 0.14 (0.04-0.36) K/mm3 Baso # (Auto) 0.05 (0.01-0.08) K/mm3 Manual Slide Review Abnormal smear ESR (0-20) mm/hr PT 11.1 (9.7-12.0) SECONDS INR 1.04 APTT 25.4 (21.7-31.4) SECONDS Sodium 138 (136-145) mEq/L Potassium 4.6 (3.5-5.1) mEq/L Chloride 104 (98-107) mEq/L Carbon Dioxide 24 (21-32) mEq/L Anion Gap 14.6 (5-15) BUN 26 H (7-18) mg/dL Creatinine 1.1 H (0.55-1.02) mg/dL Est Cr Clr Drug Dosing 58.12 mL/min Estimated GFR (MDRD) 55 (>60) mL/min BUN/Creatinine Ratio 23.6 H (14-18) Glucose 87 (70-99) mg/dL Calcium 8.8 (8.5-10.1) mg/dL Total Bilirubin 0.5 (0.2-1.0) mg/dL AST 41 H (15-37) U/L ALT 54 (14-59) U/L Alkaline Phosphatase 99 (46-116) U/L Troponin I < 0.017 (0.00-0.056) ng/mL C-Reactive Protein <0.2 (<1.0) mg/dL Total Protein 7.1 (6.4-8.2) g/dl Albumin 3.7 (3.4-5.0) g/dl Globulin 3.4 gm/dL Albumin/Globulin Ratio 1.1 (1-2) SARS-CoV-2 RNA (KASANDRA) (NEGATIVE) 04/02/21 04/03/21 Range/Units 23:30 00:27 WBC (3.98-10.04) K/mm3 RBC (3.98-5.22) M/mm3 Hgb (11.2-15.7) gm/dl Hct (34.1-44.9) % MCV (79.4-94.8) fl MCH (25.6-32.2) pg MCHC (32.2-35.5) g/dl RDW Std Deviation (36.4-46.3) fL Plt Count (182-369) K/mm3 MPV (9.4-12.3) fl Neut % (Auto) (34.0-71.1) % Lymph % (Auto) (19.3-51.7) % Will % (Auto) (4.7-12.5) % Eos % (Auto) (0.7-5.8) Baso % (Auto) (0.1-1.2) % Neut # (Auto) (1.56-6.13) K/mm3 Lymph # (Auto) (1.18-3.74) K/mm3 Will # (Auto) (0.24-0.36) K/mm3 Eos # (Auto) (0.04-0.36) K/mm3 Baso # (Auto) (0.01-0.08) K/mm3 Manual Slide Review ESR 2 (0-20) mm/hr PT (9.7-12.0) SECONDS INR APTT (21.7-31.4) SECONDS Sodium (136-145) mEq/L Potassium (3.5-5.1) mEq/L Chloride (98-107) mEq/L Carbon Dioxide (21-32) mEq/L Anion Gap (5-15) BUN (7-18) mg/dL Creatinine (0.55-1.02) mg/dL Est Cr Clr Drug Dosing mL/min Estimated GFR (MDRD) (>60) mL/min BUN/Creatinine Ratio (14-18) Glucose (70-99) mg/dL Calcium (8.5-10.1) mg/dL Total Bilirubin (0.2-1.0) mg/dL AST (15-37) U/L ALT (14-59) U/L Alkaline Phosphatase (46-116) U/L Troponin I (0.00-0.056) ng/mL C-Reactive Protein (<1.0) mg/dL Total Protein (6.4-8.2) g/dl Albumin (3.4-5.0) g/dl Globulin gm/dL Albumin/Globulin Ratio (1-2) SARS-CoV-2 RNA (KASANDRA) Negative (NEGATIVE) Meds: Medications Discontinued Medications Generic Name Dose Route Start Last Admin Trade Name Freq PRN Reason Stop Dose Admin Diphenhydramine HCl 50 mg 04/03/21 00:13 04/03/21 00:19 Diphenhydramine 50 Mg/Ml Sdv IVPUSH 04/03/21 00:14 50 mg ONETIME ONE Administration Ondansetron HCl 4 mg 04/03/21 00:13 04/03/21 00:19 Ondansetron 4 Mg/2 Ml Sdv IVPUSH 04/03/21 00:14 4 mg ONETIME ONE Administration - Re-Assessments/Exams Free Text/Narrative Re-Assessment/Exam: 04/02/21 23:03 Patient is now doing better her speech is back to normal. However lab is now drawing her labs. I did call 1 call at [facility] and they would like me for her to call back after the labs are done. 04/03/21 00:[address] Wells, neurologist at [facility] his recommendation was discussed with [facility] as she has had a lot of work done there I discussed this with [facility] as it turns out the patient is scheduled for catheterization tomorrow midday in [place] and there is a bed shortage in [place] so I called back to [facility] talked over Dr. Mathews who is kind enough to accept the patient she accepted at 00:43 Departure - Departure Time of Disposition: 00:56 Disposition: DC/Tfer to Acute Hospital 02 Clinical Impression: TIA (transient ischemic attack), History of endocarditis, Severe tricuspid regurgitation - Discharge Information Referrals: Kermit Haynes MD [Primary Care Provider] - Forms: ED Department Discharge Sepsis Event Note (ED) - Evaluation Sepsis Screening Result: No Definite Risk - Focused Exam Vital Signs: Vital Signs Temp Pulse Resp BP Pulse Ox 04/02/21 21:56 36.6 C 84 16 145/109 H 99 - My Orders Last 24 Hours: My Active Orders 04/02/21 22:20 Chest 1V Frontal [CR] Stat 04/02/21 22:22 Head wo Cont [CT] Stat - Assessment/Plan Last 24 Hours: My Active Orders 04/02/21 22:20 Chest 1V Frontal [CR] Stat 04/02/21 22:22 Head wo Cont [CT] Stat
[2021-04-03] MEDS ORDERED: Ondansetron 4 MG/2 ML SDV IVPUSH ONE (00:13)
[2021-04-03] MEDS ORDERED: diphenhydrAMINE 50 MG/ML SDV IVPUSH ONE (00:13)
--- NOTE | 2021-04-03 08:15 | CR ---
Chest: Portable view of the chest was obtained. Comparison: No prior chest imaging is available. Heart size and mediastinum are normal. Slight density is noted within the lateral costophrenic angle on the left side. Lungs otherwise are clear. Bony structures are unremarkable. Impression: 1. Slight density within the lateral left costophrenic angle. Uncertain if this is chronic or due to minimal left basilar atelectasis. 2. Nothing acute is otherwise seen on portable chest x-ray. Diagnostic code #2
--- NOTE | 2021-04-03 08:43 | CT ---
Head CT Technique: Multiple axial sections through the brain were obtained. Intravenous contrast was not utilized. Reconstructed coronal and sagittal images were obtained. Comparison: Prior head CT study of 04/25/20. Findings: Ventricles along with basal cisterns and sulci over the convexities are within normal limits for the patient's age. No abnormal parenchymal densities are seen. No evidence of intracranial hemorrhage. No midline shift or mass-effect is seen. Bone window settings were reviewed. No acute calvarial finding is seen. Prior surgery within the right mastoid sinus is seen. No acute mastoid sinus findings are noted. Visualized paranasal sinuses show nothing acute. Impression: 1. Prior surgery within the right mastoid sinus. 2. Nothing acute is identified on noncontrast head CT study. If patient's symptoms are persistent, MRI study could then be considered. Diagnostic code #2 I agree with preliminary report from [facility], finalized on 04/02/21, 11:43 PM CDT, code 1
== END 2021-04-03 01:18 ==
LOC: JD.ED 21:49
DX: G45.9 Transient cerebral ischemic attack, unspecified (principal); I07.1 Rheumatic tricuspid insufficiency; Z88.6 Allergy status to analgesic agent; Z88.8 Allergy status to other drugs, medicaments and biological substances; Z20.822 Contact with and (suspected) exposure to COVID-19
CPT/HCPCS: 36415; 70450; 71045; 80053; 84484; 85025; 85610; 85652; 85730; 86140; 87635; 93005; 96374; 96375; 99285; J1200; J2405; 93010; U0002

== ENCOUNTER 2021-05-03 08:49 | Emergency (ER) | payer MEDICAID ==
[2021-05-03] MEDS ORDERED: diphenhydrAMINE 50 MG/ML SDV IM ONE (09:25)
[2021-05-03] MEDS ORDERED: Metoclopramide 10 MG/2 ML SDV IM ONE (09:25)
[2021-05-03] MEDS ORDERED: Ketorolac 60 MG/2 ML SDV IM ONE (09:25)
[2021-05-03] MEDS ORDERED: HYDROmorphone 1 MG/ML Syringe IM ONE (09:34)
[2021-05-03] MEDS ORDERED: Ondansetron 4 MG Tab.DIS PO ONE (09:34)
--- NOTE | 2021-05-03 10:14 | EDM.PDOC ---
ED HPI GENERAL MEDICAL PROBLEM - General Chief Complaint: ENT Problem Stated Complaint: RT EAR PAIN/HEADACHE Time Seen by Provider: 05/03/21 09:01 Source of Information: Reports: Patient History Limitations: Reports: No Limitations - History of Present Illness INITIAL COMMENTS - FREE TEXT/NARRATIVE: 40-year-old female presents the emergency department today with complaints of r ight ear pain with drainage and migraine headache. Patient does have a history of migraine headaches and she states she has had 1 for the past few days. She does have photophobia and phonophobia. She states she has been taking combination medication that contains Tylenol and caffeine. She states this is not helped. She states she woke this morning and did have a moderate amount of drainage which had drained out onto her pillow and her shirt from her right ear. She states it was not foul-smelling as it normally is. She does have a history of otitis media and otitis externa in the right ear. She was initially seen here on March 20, 2021 and at that time had been on Cipro eardrops for about 10 days. At that visit she was told to resume the Cipro drops for another 10 days and started on Levaquin. She states that it did not completely resolve and return to the ER on 03/28/2021 and was given another 10-day course of Levaquin. States she has seen [facility], , and she did go into the ear canal and microscopically clean the ear out. She also had a stat head CT completed on April 02 which was unremarkable. She denies any recent fever or chills. She states she has been nauseated and vomited a couple of times over the past couple of days. She denies any cough or shortness of breath. She denies any blurred vision double vision or any ringing in her ears. Right Ear Pain Score (Numeric/FACES): 9 - Related Data Allergies Allergy/AdvReac Type Severity Reaction Status Date / Time ketorolac [From Toradol] Allergy Severe Hives Verified 05/03/21 08:59 prochlorperazine Allergy Severe Hives Verified 05/03/21 08:59 [From Compazine] metoclopramide [From Reglan] AdvReac Severe Anxiety Verified 05/03/21 08:59 nalbuphine [From Nubain] AdvReac Severe Change Verified 05/03/21 08:59 Mental Status Home Meds: Home Meds Nitroglycerin [Nitrostat] 0.4 mg SL ASDIRECTED PRN 03/20/21 [History] Ondansetron [Zofran ODT] 4 mg PO Q8HR PRN #10 tab.dis 03/20/21 [Rx] Aspirin 81 mg PO DAILY 05/03/21 [History] Ciprofloxacin/Dexamethasone [Ciprodex Otic Susp] 4 drop OT BID #1 bottle 05/03/21 [Rx] Citalopram [Citalopram HBr] 1 tab PO DAILY 05/03/21 [History] Furosemide [Lasix] 10 mg PO DAILY 05/03/21 [History] Gabapentin [Neurontin] 1 tab PO DAILY 05/03/21 [History] Hydrocodone/Acetaminophen [Hydrocodone-Acetamin 5-325 mg] 1 tab PO DAILY 05/03/21 [History] Loratadine [Claritin] 1 tab PO DAILY 05/03/21 [History] Oxybutynin 1 tab PO DAILY 05/03/21 [History] atorvaSTATin [Lipitor] 1 tab PO DAILY 05/03/21 [History] Past Medical History HEENT History: Reports: Otitis Media, Other (See Below) Other HEENT History: Patient has had to have coldest stoma surgery on the right ear x2. She has had 4 sets of myringotomy tubes. Lot of pain in the mastoid process on the right side. 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: Musculoskeletal History: Reports: None Neurological History: Reports: Headaches, Chronic, Migraines Psychiatric History: Reports: Addiction, Anxiety Endocrine/Metabolic History: Reports: None Hematologic History: Reports: None Immunologic History: Reports: None Oncologic (Cancer) History: Reports: Cervix Dermatologic History: Reports: None - Infectious Disease History Infectious Disease History: Reports: C-Difficile, Chicken Pox - Past Surgical History HEENT Surgical History: Reports: Myringotomy w Tube(s) Other HEENT Surgeries/Procedures: cholesteatoma has had 11 surgeries GI Surgical History: Reports: Cholecystectomy Female Surgical History: Reports: Tubal Ligation Social & Family History - Family History Family Medical History: No Pertinent Family History - Caffeine Use Caffeine Use: Reports: Coffee - Recreational Drug Use Recreational Drug Use: Yes Drug Use in Last 12 Months: No Recreational Drug Type: Reports: Heroin, Methamphetamine Recreational Drug Use Frequency: Not Used In Over 6 Months - Living Situation & Occupation Living situation: Reports: Occupation: Employed ED ROS ENT - Review of Systems Review Of Systems: Comprehensive ROS is negative, except as noted in HPI. ED EXAM, ENT - Physical Exam Exam: See Below Exam Limited By: No Limitations General Appearance: Alert, WD/WN, Mild Distress Ears: Normal External Exam, Hearing Grossly Normal, Auricular Tenderness, Canal Swelling (I was not able to visualize any drainage in the canal however I was not able to visualize the tympanic membrane as the canal is so red and swollen and painful that the patient cannot tolerate me attempting this.). No: Canal Blood, Canal Discharge, Canal Foreign Body, Canal Material Nose: Normal Inspection Mouth/Throat: Normal Inspection, Normal Gums, Normal Lips, Normal Oropharynx, Normal Teeth Head: Atraumatic, Normocephalic Neck: Normal Inspection, Supple, Non-Tender Respiratory/Chest: No Respiratory Distress, No Accessory Muscle Use Cardiovascular: Normal Peripheral Pulses, Regular Rate, Rhythm GI/Abdominal: No Distention (Female) Exam: Deferred Rectal (Female) Exam: Deferred Back: Normal Inspection Extremities: Normal Inspection Neurological: Alert, Oriented, Normal Cognition Psychiatric: Normal Affect, Normal Mood Skin: Warm, Dry, Intact, Normal Color, No Rash Lymphatic: No Adenopathy Course - Vital Signs Text/Narrative:: As stated above, patient with complaints of migraine headache and she does have chronic migraines. She is allergic to Toradol and Reglan, so I will treat her with Dilaudid and Zofran IM as she has a very difficult IV start. She does have a history of IV drug abuse in the past. Due to her complex history of chronic otitis media and externa, I have paged [facility] call. They were busy and they state that they will call me back. Last Recorded V/S: Last Vital Signs Temp 97.2 F 05/03/21 09:09 Pulse 99 05/03/21 09:09 Resp 20 05/03/21 09:09 BP 107/82 05/03/21 09:09 Pulse Ox 100 05/03/21 09:09 - Orders/Labs/Meds Meds: Medications Discontinued Medications Generic Name Dose Route Start Last Admin Trade Name Maria Esther PRN Reason Stop Dose Admin Diphenhydramine HCl 50 mg 05/03/21 09:25 05/03/21 10:12 Diphenhydramine 50 Mg/Ml Sdv IM 05/03/21 09:26 Not Given ONETIME ONE Hydromorphone HCl 1 mg 05/03/21 09:34 05/03/21 09:42 Hydromorphone 1 Mg/Ml Syringe IM 05/03/21 09:35 1 mg ONETIME ONE Administration Ketorolac Tromethamine 60 mg 05/03/21 09:25 05/03/21 10:13 Ketorolac 60 Mg/2 Ml Sdv IM 05/03/21 09:26 Not Given ONETIME ONE Metoclopramide HCl 10 mg 05/03/21 09:25 05/03/21 10:13 Metoclopramide 10 Mg/2 Ml Sdv IM 05/03/21 09:26 Not Given ONETIME ONE Ondansetron HCl 4 mg 05/03/21 09:34 05/03/21 09:41 Ondansetron 4 Mg Tab.Dis PO 05/03/21 09:35 4 mg ONETIME ONE Administration - Re-Assessments/Exams Free Text/Narrative Re-Assessment/Exam: 05/03/21 10:15 [facility] call has returned my call. I spoke to the ENT doctor on-call, Dr. Lora. He was able to review the patient's record and he states he has seen her in the past as well. He states that she has had numerous surgeries on that right ear and he suspects she has some trigeminal neuralgia involved. He states because she has not had a fever that he does not feel we should treat her with oral antibiotics. He states that when she did see in the clinic she did microscopically clean that area and took many layers of old skin and wax out of there however states that the tympanic membrane was unremarkable and that the ear actually looked good. He states that from their records the patient has had 2 MRIs [address] 4 CT scans in the last month. So I definitely will not repeat any of that. He recommends that I start her on Ciprodex drops 4 drops twice daily for that right ear and that she needs to follow-up with ENT clinic at [facility] in the next week or 2. I have relayed this information to the patient and she does verbalize understanding. I will send a prescription for the Ciprodex drops to her pharmacy and she will be discharged to home. Patient states her headache and nausea are much better. Departure - Departure Time of Disposition: 10:47 Disposition: Home, Self-Care 01 Condition: Good Clinical Impression: Otorrhea of right ear, Migraine - Discharge Information Prescriptions: Ciprofloxacin/Dexamethasone [Ciprodex Otic Susp] 4 drop OT BID #1 bottle Referrals: Kermit Haynes MD [Primary Care Provider] - Forms: ED Department Discharge Additional Instructions: You were seen in the emergency department today with complaints of migraine headache and right ear pain and drainage. You were given medication to abort the headache and this did seem to help. I did speak with the ENT physician on- call at [facility] in [place], Dr. Lora, and he recommends I start you on Ciprodex eardrops. I have sent a prescription for this medication to your pharmacy. You will need to use 4 drops in the right ear twice daily for the next 10 days. He also request that you call and schedule appointment at [facility] within the next week or 2 for follow-up and evaluation. From now on, he also states that should you have issues with your ear that you do not follow- up in the emergency department and to phone the ENT clinic. Should your condition worsen or change, do not hesitate returning to the emergency department. Sepsis Event Note (ED) - Evaluation Sepsis Screening Result: No Definite Risk - Focused Exam Vital Signs: Vital Signs Temp Pulse Resp BP Pulse Ox 05/03/21 09:09 97.2 F 99 20 107/82 100
== END 2021-05-03 10:55 | disposition home or self-care (01) ==
LOC: JD.ED 08:49
DX: G43.909 Migraine, unspecified, not intractable, without status migrainosus (principal); H92.11 Otorrhea, right ear; Z79.82 Long term (current) use of aspirin; Z79.899 Other long term (current) drug therapy; Z88.4 Allergy status to anesthetic agent; Z88.8 Allergy status to other drugs, medicaments and biological substances; Z88.5 Allergy status to narcotic agent; Z88.6 Allergy status to analgesic agent
CPT/HCPCS: 96372; 99283; A9270; J1170; 99284

== ENCOUNTER 2021-05-22 11:19 | Emergency (ER) | payer MEDICAID ==
[2021-05-22] MEDS ORDERED: Sodium Chloride 0.9% 10 ML Syringe FLUSH PRN (11:43)
[2021-05-22] MEDS ORDERED: Ondansetron 4 MG/2 ML SDV IVPUSH ONE (11:43)
[2021-05-22] MEDS ORDERED: Sodium Chloride 0.9% 1,000 ML IV ONE (11:43)
[2021-05-22] MEDS ORDERED: HYDROmorphone 0.5 MG/0.5 ML Syringe IVPUSH ONE (11:43)
--- NOTE | 2021-05-22 11:50 | EDM.PDOC ---
ED HPI GENERAL MEDICAL PROBLEM - General Chief Complaint: Chest Pain Stated Complaint: CHEST PAIN/VOMITING/SOB/POST HEART SURGERY Time Seen by Provider: 05/22/21 11:37 Source of Information: Reports: Patient, RN Notes Reviewed History Limitations: Reports: No Limitations - History of Present Illness INITIAL COMMENTS - FREE TEXT/NARRATIVE: Patient is a 40-year-old female who presents to the ER for the evaluation of her chest pain. Patient recently had a tricuspid valve replacement and pacemaker placement on May [address] Mcintosh at [place] in [facility]. Stat es that everything was going okay but she developed left-sided chest pain yesterday night, that stays into her left chest, she notes this is an intense pressure/dull ache feeling. She did take 2 tablets of nitro at 3 AM this morning, and has a resultant headache at this time. She has not had any fever, but she has had multiple episodes of nausea and vomiting but no diarrhea. Patient has been taking some stool softeners/laxatives because she has been somewhat constipated due to the pain meds she has been on. Her last pain medication she took was 10 mg oxycodone at around 9 AM this morning. Patient did check in with her surgeon this morning, and they told her either to come to [place] or the ER, she stated that it was too short and noticed to make a trip to [place], so she presents to the ER. Left Chest Pain Score (Numeric/FACES): 9 - Related Data Allergies Allergy/AdvReac Type Severity Reaction Status Date / Time ketorolac [From Toradol] Allergy Severe Hives Verified 05/22/21 11:31 prochlorperazine Allergy Severe Hives Verified 05/22/21 11:31 [From Compazine] metoclopramide [From Reglan] AdvReac Severe Anxiety Verified 05/22/21 11:31 nalbuphine [From Nubain] AdvReac Severe Change Verified 05/22/21 11:31 Mental Status tramadol AdvReac Severe Shortness Verified 05/22/21 11:31 of Breath Home Meds: Home Meds Nitroglycerin [Nitrostat] 0.4 mg SL ASDIRECTED PRN 03/20/21 [History] Ondansetron [Zofran ODT] 4 mg PO Q8HR PRN #10 tab.dis 03/20/21 [Rx] Gabapentin [Neurontin] 1 tab PO DAILY 05/03/21 [History] Hydrocodone/Acetaminophen [Hydrocodone-Acetamin 5-325 mg] 1 tab PO DAILY 05/03/21 [History] Loratadine [Claritin] 1 tab PO DAILY 05/03/21 [History] atorvaSTATin [Lipitor] 1 tab PO DAILY 05/03/21 [History] Aspirin 325 mg PO DAILY 05/22/21 [History] oxyCODONE HCl/Acetaminophen [Percocet 10-325 mg Tablet] 1 each PO Q4H PRN 05/22/21 [History] Past Medical History HEENT History: Reports: Otitis Media, Other (See Below) Other HEENT History: Lot of pain in the mastoid process on the right side. 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: Neurological History: Reports: Headaches, Chronic, Migraines Psychiatric History: Reports: Addiction, Anxiety Oncologic (Cancer) History: Reports: Cervix - Infectious Disease History Infectious Disease History: Reports: C-Difficile, Chicken Pox - Past Surgical History HEENT Surgical History: Reports: Myringotomy w Tube(s) (x4 sets), Other (See Below) Other HEENT Surgeries/Procedures: cholesteatoma has had 11 surgeries Cardiovascular Surgical History: Reports: Pacer (05/05/21), Valve Replacement (tricuspid valve 05/05/21) GI Surgical History: Reports: Cholecystectomy Female Surgical History: Reports: Tubal Ligation Social & Family History - Family History Family Medical History: No Pertinent Family History - Caffeine Use Caffeine Use: Reports: Coffee - Recreational Drug Use Recreational Drug Use: No - Living Situation & Occupation Living situation: Reports: Occupation: Employed ED ROS GENERAL - Review of Systems Review Of Systems: Comprehensive ROS is negative, except as noted in HPI. ED EXAM, GENERAL - Physical Exam Exam: See Below Exam Limited By: No Limitations General Appearance: Alert, WD/WN, No Apparent Distress Respiratory/Chest: No Respiratory Distress, Lungs Clear, Normal Breath Sounds, No Accessory Muscle Use, Other (entire chest is fairly tender d/t recent open hear surgery;states it does not seem worse) Cardiovascular: Normal Peripheral Pulses, Regular Rate, Rhythm, No Edema, No Murmur Peripheral Pulses: 2+: Radial (L), Radial (R) GI/Abdominal: Normal Bowel Sounds, Soft, Non-Tender, No Distention, No Mass Extremities: Normal Inspection, Normal Capillary Refill Neurological: Alert, Oriented, Normal Cognition, No Motor/Sensory Deficits Psychiatric: Anxious, Tearful Skin Exam: Warm, Dry, Intact, Normal Color, No Rash #1 Interpretation EKG Date: 05/22/21 Time: 11:28 Rhythm: Other (ventricular paced rhythm) Rate (Beats/Min): 76 [place]: Normal P-Wave: Present QRS: Normal ST-T: Normal QT: Normal EKG Interpretation Comments: No obvious ischemia or acute ST changes noted, reviewed by myself and Dr. Mendes. Course - Vital Signs Last Recorded V/S: Last Vital Signs Temp 96.2 F L 05/22/21 11:27 Pulse 76 05/22/21 11:27 Resp 16 05/22/21 11:27 BP 112/81 05/22/21 11:27 Pulse Ox 100 05/22/21 11:27 - Orders/Labs/Meds Orders: Active Orders 24 hr Category Date Time Status EKG 12 Lead [EKG Documentation Completion] [RC] STAT Care 05/22/21 11:32 Active Peripheral IV Care [RC] . DIRECTED Care 05/22/21 11:43 Ordered Sodium Chloride 0.9% [Normal Saline] 1,000 ml Med 05/22/21 11:43 Ordered IV ONETIME Sodium Chloride 0.9% [Saline Flush] Med 05/22/21 11:43 Ordered 10 ml FLUSH ASDIRECTED PRN Peripheral IV Insertion Adult [OM.PC] Stat Oth 05/22/21 11:43 Ordered Medication Orders Sodium Chloride (Normal Saline) 1,000 mls @ 500 mls/hr IV ONETIME ONE Stop: 05/22/21 13:42 Last Admin: 05/22/21 11:53 Dose: 500 mls/hr Documented by: JOSE G Sodium Chloride (Sodium Chloride 0.9% 10 Ml Syringe) 10 ml FLUSH ASDIRECTED PRN PRN Reason: Keep Vein Open Last Admin: 05/22/21 12:11 Dose: 10 ml Documented by: JOSE G Labs: Laboratory Tests 05/22/21 05/22/21 05/22/21 Range/Units 12:00 12:00 12:00 WBC 12.10 H (3.98-10.04) K/mm3 RBC 3.46 L (3.98-5.22) M/mm3 Hgb 10.1 L D (11.2-15.7) gm/dl Hct 32.0 L (34.1-44.9) % MCV 92.5 D (79.4-94.8) fl MCH 29.2 (25.6-32.2) pg MCHC 31.6 L (32.2-35.5) g/dl RDW Std Deviation 47.7 H (36.4-46.3) fL Plt Count 650 H D (182-369) K/mm3 MPV 8.1 L (9.4-12.3) fl Neut % (Auto) 75.9 H (34.0-71.1) % Lymph % (Auto) 14.5 L (19.3-51.7) % [place] % (Auto) 7.8 (4.7-12.5) % Eos % (Auto) 1.2 (0.7-5.8) Baso % (Auto) 0.4 (0.1-1.2) % Neut # (Auto) 9.18 H (1.56-6.13) K/mm3 Lymph # (Auto) 1.76 (1.18-3.74) K/mm3 [place] # (Auto) 0.94 H (0.24-0.36) K/mm3 Eos # (Auto) 0.15 (0.04-0.36) K/mm3 Baso # (Auto) 0.05 (0.01-0.08) K/mm3 Manual Slide Review Abnormal smear PT 11.3 (9.7-12.0) SECONDS INR 1.06 APTT 28.1 (21.7-31.4) SECONDS Sodium 139 (136-145) mEq/L Potassium 4.4 (3.5-5.1) mEq/L Chloride 104 (98-107) mEq/L Carbon Dioxide 25 (21-32) mEq/L Anion Gap 14.4 (5-15) BUN 15 (7-18) mg/dL Creatinine 0.8 (0.55-1.02) mg/dL Est Cr Clr Drug Dosing 79.91 mL/min Estimated GFR (MDRD) > 60 (>60) mL/min BUN/Creatinine Ratio 18.8 H (14-18) Glucose 85 (70-99) mg/dL Calcium 9.6 (8.5-10.1) mg/dL Magnesium 2.1 (1.8-2.4) mg/dL Total Bilirubin 0.5 (0.2-1.0) mg/dL AST 42 H (15-37) U/L ALT 42 (14-59) U/L Alkaline Phosphatase 212 H (46-116) U/L Troponin I < 0.017 (0.00-0.056) ng/mL C-Reactive Protein (<1.0) mg/dL NT-Pro-B Natriuret Pep (0-125) pg/mL Total Protein 7.6 (6.4-8.2) g/dl Albumin 3.4 (3.4-5.0) g/dl Globulin 4.2 gm/dL Albumin/Globulin Ratio 0.8 L (1-2) 05/22/21 05/22/21 Range/Units 12:00 12:00 WBC (3.98-10.04) K/mm3 RBC (3.98-5.22) M/mm3 Hgb (11.2-15.7) gm/dl Hct (34.1-44.9) % MCV (79.4-94.8) fl MCH (25.6-32.2) pg MCHC (32.2-35.5) g/dl RDW Std Deviation (36.4-46.3) fL Plt Count (182-369) K/mm3 MPV (9.4-12.3) fl Neut % (Auto) (34.0-71.1) % Lymph % (Auto) (19.3-51.7) % [place] % (Auto) (4.7-12.5) % Eos % (Auto) (0.7-5.8) Baso % (Auto) (0.1-1.2) % Neut # (Auto) (1.56-6.13) K/mm3 Lymph # (Auto) (1.18-3.74) K/mm3 [place] # (Auto) (0.24-0.36) K/mm3 Eos # (Auto) (0.04-0.36) K/mm3 Baso # (Auto) (0.01-0.08) K/mm3 Manual Slide Review PT (9.7-12.0) SECONDS INR APTT (21.7-31.4) SECONDS Sodium (136-145) mEq/L Potassium (3.5-5.1) mEq/L Chloride (98-107) mEq/L Carbon Dioxide (21-32) mEq/L Anion Gap (5-15) BUN (7-18) mg/dL Creatinine (0.55-1.02) mg/dL Est Cr Clr Drug Dosing mL/min Estimated GFR (MDRD) (>60) mL/min BUN/Creatinine Ratio (14-18) Glucose (70-99) mg/dL Calcium (8.5-10.1) mg/dL Magnesium (1.8-2.4) mg/dL Total Bilirubin (0.2-1.0) mg/dL AST (15-37) U/L ALT (14-59) U/L Alkaline Phosphatase (46-116) U/L Troponin I (0.00-0.056) ng/mL C-Reactive Protein 3.8 H* (<1.0) mg/dL NT-Pro-B Natriuret Pep 1737 H (0-125) pg/mL Total Protein (6.4-8.2) g/dl Albumin (3.4-5.0) g/dl Globulin gm/dL Albumin/Globulin Ratio (1-2) Meds: Medications Generic Name Dose Route Start Last Admin Trade Name Freq PRN Reason Stop Dose Admin Sodium Chloride 1,000 mls @ 500 mls/hr 05/22/21 11:43 05/22/21 11:53 Normal Saline IV 05/22/21 13:42 500 mls/hr ONETIME ONE Administration Sodium Chloride 10 ml 05/22/21 11:43 05/22/21 12:11 Sodium Chloride 0.9% 10 Ml Syringe FLUSH 10 ml ASDIRECTED PRN Administration Keep Vein Open Discontinued Medications Generic Name Dose Route Start Last Admin Trade Name Freq PRN Reason Stop Dose Admin Hydromorphone HCl 0.5 mg 05/22/21 11:43 05/22/21 11:53 Hydromorphone 0.5 Mg/0.5 Ml Syringe IVPUSH 05/22/21 11:44 0.5 mg ONETIME ONE Administration Ondansetron HCl 4 mg 05/22/21 11:43 05/22/21 11:53 Ondansetron 4 Mg/2 Ml Sdv IVPUSH 05/22/21 11:44 4 mg ONETIME ONE Administration - Re-Assessments/Exams Free Text/Narrative Re-Assessment/Exam: 05/22/21 11:52 Patient presents to the ER for the evaluation of her chest discomfort and nausea/vomiting. We will go ahead and get labs, give some fluids, nausea meds and some pain medication for initial management. 05/22/21 12:51 Patient's laboratory evaluation has initially resulted, patient's white count is elevated at 12.10, 75% neutrophils and the auto differential, metabolic panel is impressive for an elevated ALP of 212, troponin is negative, CRP is elevated at 3.8, and her BNP is elevated at 1737. Chest x-ray demonstrated no signs of acute findings and the abdomen x-ray demonstrates a normal bowel gas pattern. I do appreciate however quite a bit of stool throughout her colon, she states she has been constipated due to needing to take opioid pain medications, this is likely the source of her abdominal distention and discomfort. 05/22/21 13:17 I did go over all of the labs with Dr. Mendes, and he has no major concerns for today's purposes. Patient is feeling much better at this time, we will go ahead and let the fluids finish and discharge her home with general recommendations. I do believe again that her abdomen distention and pain is due to the constipation, and she is having some referred pain in her left shoulder, that might be pushing on her diaphragm. Departure - Departure Time of Disposition: 13:18 Disposition: Home, Self-Care 01 Condition: Good Clinical Impression: Pressure in left side of chest Constipation Qualifiers: Constipation type: drug induced constipation Qualified Code(s): K59.03 - Drug induced constipation Left shoulder pain Qualifiers: Chronicity: acute Qualified Code(s): M25.512 - Pain in left shoulder Instructions: Nonspecific Chest Pain, Adult, Constipation, Adult, [id number] Referrals: Kermit Haynes MD [Primary Care Provider] - Forms: ED Department Discharge Additional Instructions: You were seen in this ER for your left-sided chest discomfort, shoulder pain, and abdominal distention. Laboratory evaluation demonstrated no worrisome abnormalities for today's purposes. All of your labs seem to be in line with postsurgical healing/management. Your abdomen x-ray did demonstrate quite a bit of stool throughout your entire colon, suggesting constipation. You noted that you are taking stool softeners for this, you may continue to use a stool softeners, laxatives as needed, to help promote bowel movements. You may also use softening/laxative suppositories. Continue all other medications as previously prescribed by your surgeon, and primary care doctor. As always do not hesitate to return to the ER at any time if symptoms change or worsen. Sepsis Event Note (ED) - Evaluation Sepsis Screening Result: No Definite Risk - Focused Exam Vital Signs: Vital Signs Temp Pulse Resp BP Pulse Ox 05/22/21 11:27 96.2 F L 76 16 112/81 100 - My Orders Last 24 Hours: My Active Orders 05/22/21 11:32 EKG 12 Lead [EKG Documentation Completion] [RC] STAT 05/22/21 11:43 Peripheral IV Care [RC] . DIRECTED Sodium Chloride 0.9% [Normal Saline] 1,000 ml IV ONETIME Sodium Chloride 0.9% [Saline Flush] 10 ml FLUSH ASDIRECTED PRN Peripheral IV Insertion Adult [OM.PC] Stat - Assessment/Plan Last 24 Hours: My Active Orders 05/22/21 11:32 EKG 12 Lead [EKG Documentation Completion] [RC] STAT 05/22/21 11:43 Peripheral IV Care [RC] . DIRECTED Sodium Chloride 0.9% [Normal Saline] 1,000 ml IV ONETIME Sodium Chloride 0.9% [Saline Flush] 10 ml FLUSH ASDIRECTED PRN Peripheral IV Insertion Adult [OM.PC] Stat
--- NOTE | 2021-05-22 12:32 | CR ---
Chest: Frontal view of the chest was obtained. Comparison: No prior chest imaging is available. Heart size is at the upper limits of normal. Upper mediastinum is normal. Sternotomy is noted with prosthetic heart valve. Tubings and catheters are seen overlying the left side. Minimal linear density is seen with the left lung base most likely due to scarring. Lungs otherwise are clear. Bony structures are grossly intact. Impression: 1. Numerous findings as noted above. 2. Nothing acute is suspected on frontal chest x-ray. Diagnostic code #2
--- NOTE | 2021-05-22 12:32 | CR ---
Abdomen: Supine and upright views the abdomen were obtained. Comparison: Prior abdominal x-ray of . Surgical clips are seen from prior cholecystectomy. Bowel gas pattern is normal. No abnormal calcifications or soft tissue abnormality is seen. No free air is seen. Impression: 1. Previous cholecystectomy. 2. Nothing acute is seen on supine and upright abdominal x-ray. Diagnostic code #2
== END 2021-05-22 14:15 | disposition home or self-care (01) ==
LOC: JD.ED 11:19
DX: R07.89 Other chest pain (principal); K59.03 Drug induced constipation; T50.995A Adverse effect of other drugs, medicaments and biological substances, initial encounter; M25.512 Pain in left shoulder; Z88.5 Allergy status to narcotic agent; Z88.8 Allergy status to other drugs, medicaments and biological substances; Z79.82 Long term (current) use of aspirin; Z79.899 Other long term (current) drug therapy
CPT/HCPCS: 36415; 71045; 74019; 80053; 83735; 83880; 84484; 85025; 85610; 85730; 86140; 93005; 96374; 96375; 99285; J1170; J2405; J7030; 93010; 99284

== ENCOUNTER 2021-12-07 10:27 | Emergency (ER) | payer MEDICAID ==
[2021-12-07] MEDS ORDERED: Sodium Chloride 0.9% 10 ML Syringe FLUSH PRN (11:55)
[2021-12-07] MEDS ORDERED: Sodium Chloride 0.9% 1,000 ML IV STA (12:23)
[2021-12-07] MEDS ORDERED: Ondansetron 4 MG/2 ML SDV IVPUSH ONE ×2 (12:23→14:23)
[2021-12-07] MEDS ORDERED: HYDROmorphone 0.5 MG/0.5 ML Syringe IVPUSH ONE ×2 (12:23→14:23)
== END 2021-12-07 16:05 | disposition home or self-care (01) ==
LOC: JD.ED 10:27
DX: B34.9 Viral infection, unspecified (principal); Z72.0 Tobacco use; Z88.5 Allergy status to narcotic agent; Z88.6 Allergy status to analgesic agent; Z79.82 Long term (current) use of aspirin; Z79.899 Other long term (current) drug therapy; Z20.822 Contact with and (suspected) exposure to COVID-19
CPT/HCPCS: 36415; 71045; 80053; 81001; 84484; 85025; 86140; 87635; 87804; 93005; 96374; 96375; 96376; 99284; J1170; J2405; J7030; 36410; 76937; 93010; 99285; U0002

== ENCOUNTER 2022-05-10 21:17 | Emergency (ER) | payer BC, MEDICAID ==
[2022-05-10] MEDS ORDERED: Ondansetron 4 MG Tab.DIS PO ONE (22:30)
[2022-05-10] MEDS ORDERED: HYDROmorphone 1 MG/ML Syringe IM ONE (22:30)
== END 2022-05-10 23:25 | disposition home or self-care (01) ==
LOC: JD.ED 21:17
DX: U07.1 COVID-19 (principal); J40 Bronchitis, not specified as acute or chronic; Z88.5 Allergy status to narcotic agent; Z88.1 Allergy status to other antibiotic agents; Z88.8 Allergy status to other drugs, medicaments and biological substances; Z79.899 Other long term (current) drug therapy; Z79.82 Long term (current) use of aspirin; Z86.16 Personal history of COVID-19; Z90.49 Acquired absence of other specified parts of digestive tract
CPT/HCPCS: 71045; 96372; 99283; A9270; J1170

== ENCOUNTER 2023-02-23 16:28 | Emergency (ER) | payer MEDICAID ==
[2023-02-23] MEDS ORDERED: Morphine 4 MG/ML Syringe IVPUSH ONE (17:07)
[2023-02-23] MEDS ORDERED: Sodium Chloride 0.9% 10 ML Syringe FLUSH PRN (17:07)
[2023-02-23] MEDS ORDERED: Aspirin 81 MG Tab.Chew PO ONE (17:07)
[2023-02-23 17:38] LABS: BASOPHILS ABSOLUTE AUTO 0.05 K/mm3 (0.01-0.08); BASOPHILS PERCENT AUTO 0.5 % (0.1-1.2); EOSINOPHILS ABSOLUTE AUTO 0.11 K/mm3 (0.04-0.36); HEMATOCRIT 40.8 % (34.1-44.9); HEMOGLOBIN 13.5 gm/dl (11.2-15.7); IMMATURE GRAN ABSOLUTE AUTO 0.05 K/mm3 (0.00-0.10); IMMATURE GRAN PERCENT AUTO 0.5 % (<=1.0); LYMPHOCYTES ABSOLUTE AUTO 3.23 K/mm3 (1.18-3.74); LYMPHOCYTES PERCENT AUTO 30.3 % (19.3-51.7); MEAN CORPUSCULAR HEMOGLOBIN 28.7 pg (25.6-32.2); MEAN CORPUSCULAR HGB CONC 33.1 g/dl (32.2-35.5); MEAN CORPUSCULAR VOLUME 86.8 fl (79.4-94.8); MEAN PLATELET VOLUME 9.6 fl (9.4-12.3); MONOCYTES ABSOLUTE AUTO 0.78 K/mm3 (0.24-0.36); MONOCYTES PERCENT AUTO 7.3 % (4.7-12.5); NEUTROPHILS ABSOLUTE AUTO 6.44 K/mm3 (1.56-6.13); NEUTROPHILS PERCENT AUTO 60.4 % (34.0-71.1); PLATELET COUNT,PLT 231 K/mm3 (182-369); WHITE BLOOD CELL COUNT,WBC 10.66 K/mm3 (3.98-10.04)
[2023-02-23] MEDS ORDERED: Morphine 4 MG/ML Syringe IM ONE (17:59)
[2023-02-23 18:05] LABS: PROTHROMBIN TIME 9.9 SECONDS (9.7-12.0)
[2023-02-23 18:11] LABS: A/G RATIO 0.9 (1-2); ALBUMIN 3.6 g/dl (3.4-5.0); ANION GAP 14.1 (5-15); BILIRUBIN TOTAL 0.3 mg/dL (0.2-1.0); BUN/CREATININE RATIO 23.3 (14-18); CALCIUM 9.2 mg/dL (8.5-10.1); CREATININE 0.9 mg/dL (0.55-1.02); EST CRCL DRUG DOSING (CG) 69.6 mL/min; POTASSIUM,K 4.1 mEq/L (3.5-5.1); PROTEIN TOTAL,TP 7.5 g/dl (6.4-8.2)
[2023-02-23 18:12] LABS: INR < 0.93
[2023-02-23 18:13] LABS: D-DIMER QUANTITATIVE 0.58 mg/L (0.19-0.50)
[2023-02-23] MEDS ORDERED: Acetaminophen/oxyCODONE 325-5 MG Tab PO ONE (18:48)
== END 2023-02-23 19:07 | disposition home or self-care (01) ==
LOC: JD.ED 16:28
DX: R07.89 Other chest pain (principal); T40.495A Adverse effect of other synthetic narcotics, initial encounter; Z88.5 Allergy status to narcotic agent; Z88.8 Allergy status to other drugs, medicaments and biological substances; Z79.82 Long term (current) use of aspirin; Z86.16 Personal history of COVID-19; Z72.0 Tobacco use
CPT/HCPCS: 36415; 71045; 80053; 83735; 84484; 85025; 85379; 85610; 93005; 96372; 99285; A9270; J2270; 93010; 99284

== ENCOUNTER 2023-05-02 19:42 | Emergency (ER) | payer BC, MEDICAID ==
[2023-05-02] MEDS ORDERED: Sodium Chloride 0.9% 10 ML Syringe FLUSH PRN (20:24)
[2023-05-02 21:19] LABS: HEMATOCRIT 37.4 % (34.1-44.9); HEMOGLOBIN 12.3 gm/dl (11.2-15.7); MEAN CORPUSCULAR HEMOGLOBIN 29.2 pg (25.6-32.2); MEAN CORPUSCULAR HGB CONC 32.9 g/dl (32.2-35.5); MEAN CORPUSCULAR VOLUME 88.8 fl (79.4-94.8); PLATELET COUNT,PLT 224 K/mm3 (182-369); RED BLOOD CELL COUNT 4.21 M/mm3 (3.98-5.22); WHITE BLOOD CELL COUNT,WBC 7.77 K/mm3 (3.98-10.04)
[2023-05-02] MEDS ORDERED: Sodium Chloride 0.9% 1,000 ML IV ONE (21:30)
[2023-05-02] MEDS ORDERED: HYDROmorphone 0.5 MG/0.5 ML Syringe IVPUSH ONE (21:30)
[2023-05-02 21:38] LABS: INR 0.96; PROTHROMBIN TIME 10.3 SECONDS (9.7-12.0)
[2023-05-02 21:45] LABS: LACTIC ACID 0.8 mmol/L (0.4-2.0)
[2023-05-02 21:46] LABS: BAND PERCENT MAN 0 % (0-10); BASOPHILS PERCENT MAN 1 (0.1-1.2); EOSINOPHILS PERCENT MAN 2 % (0.7-5.8); LYMPHOCYTES % ATYPICAL MANUAL 0 %; LYMPHOCYTES PERCENT MAN 24 % (20-40); MONOCYTES PERCENT MAN 8 % (2-10)
[2023-05-02 21:47] LABS: PLATELET COUNT ESTIMATE ADEQUATE
[2023-05-02 21:52] LABS: ALANINE AMINOTRANSFERASE,ALT 83 U/L (14-59); ALBUMIN 3.3 g/dl (3.4-5.0); ALKALINE PHOSPHATASE 80 U/L (46-116); ANION GAP 10.2 (5-15); ASPARTATE AMNIOTRANSFERASE,AST 83 U/L (15-37); BILIRUBIN TOTAL 0.2 mg/dL (0.2-1.0); BLOOD UREA NITROGEN,BUN 18 mg/dL (7-18); C-REACTIVE PROTEIN <0.2 mg/dL (<1.0); CARBON DIOXIDE,CO2 27 mEq/L (21-32); CHLORIDE,CL 104 mEq/L (98-107); CREATININE 0.9 mg/dL (0.55-1.02); ESTIMATED GFR 81 mL/min (>60); GLUCOSE RANDOM 88 mg/dL (70-99); POTASSIUM,K 4.2 mEq/L (3.5-5.1); PROTEIN TOTAL,TP 6.5 g/dl (6.4-8.2); SODIUM,NA 137 mEq/L (136-145)
[2023-05-02 21:55] LABS: TROPONIN I HIGH SENSITIVITY < 4 pg/mL (<=51)
[2023-05-02 22:00] LABS: APPEARANCE,URINE CLEAR (Clear); BILIRUBIN,URINE NEGATIVE (Negative); COLOR,URINE YELLOW (Yellow); GLUCOSE,URINE NEGATIVE (Negative); KETONES,URINE TRACE (Negative); LEUKOCYTE ESTERASE,URINE NEGATIVE (Negative); NITRITE,URINE NEGATIVE (Negative); OCCULT BLOOD,URINE 2+ (Negative); PROTEIN,URINE NEGATIVE (Negative); UROBILINOGEN,URINE 0.2 (0.2-1.0)
[2023-05-02] MEDS ORDERED: Acetaminophen 325 MG Tab PO ONE (22:09)
[2023-05-02 22:11] LABS: BACTERIA,URINE FEW /hpf (FEW); MUCUS,URINE RARE /hpf (FEW); RBC,URINE 0-5 /hpf (0-5); SQUAMOUS EPITHELIAL CELLS,UR 0-5 /hpf (0-5); WBC,URINE 0-5 /hpf (0-5)
== END 2023-05-02 22:56 | disposition home or self-care (01) ==
LOC: JD.ED 19:42
DX: L02.612 Cutaneous abscess of left foot (principal); L03.032 Cellulitis of left toe; Z86.16 Personal history of COVID-19; Z88.8 Allergy status to other drugs, medicaments and biological substances; Z88.5 Allergy status to narcotic agent; Z79.82 Long term (current) use of aspirin; Z79.899 Other long term (current) drug therapy
CPT/HCPCS: 36415; 71045; 80053; 81001; 83605; 84484; 85007; 85027; 85610; 86140; 87040; 93005; 96374; 99284; A9270; J1170; J3490; J7030; 93010

== ENCOUNTER 2024-09-09 20:47 | Emergency (ER) | payer MEDICAID ==
[2024-09-09] MEDS ORDERED: Sodium Chloride 0.9% 10 ML Syringe FLUSH PRN ×2 (21:04→21:07)
[2024-09-09 21:57] LABS: BASOPHILS ABSOLUTE AUTO 0.1 K/mm3 (0.0-0.2); BASOPHILS PERCENT AUTO 0.5 % (0.0-1.0); EOSINOPHILS ABSOLUTE AUTO 0.1 K/mm3 (0.0-0.4); EOSINOPHILS PERCENT AUTO 0.9 % (0.0-6.0); HEMATOCRIT 37.1 % (37.0-47.0); HEMOGLOBIN 12.2 gm/dl (12.0-16.0); IMMATURE GRAN ABSOLUTE AUTO 0.03 K/mm3 (0.00-0.05); IMMATURE GRAN PERCENT AUTO 0.3 % (0.0-0.4); LYMPHOCYTES ABSOLUTE AUTO 1.7 K/mm3 (1.0-4.8); LYMPHOCYTES PERCENT AUTO 18.3 % (24.0-44.0); MEAN CORPUSCULAR HEMOGLOBIN 28.2 pg (28.0-32.0); MEAN CORPUSCULAR HGB CONC 32.9 g/dl (32.0-36.0); MEAN CORPUSCULAR VOLUME 85.9 fl (83.0-99.0); MEAN PLATELET VOLUME 8.8 fl (9.4-12.3); MONOCYTES ABSOLUTE AUTO 0.6 K/mm3 (0.0-0.8); MONOCYTES PERCENT AUTO 6.9 % (0.0-8.0); NEUTROPHILS ABSOLUTE AUTO 6.8 K/mm3 (1.8-7.7); NEUTROPHILS PERCENT AUTO 73.1 % (41.0-71.0); PLATELET COUNT,PLT 215 K/mm3 (150-400); RED BLOOD CELL COUNT 4.32 M/mm3 (4.10-5.30)
[2024-09-09 22:21] LABS: INR 0.97; PROTHROMBIN TIME 10.3 SECONDS (9.7-12.0)
[2024-09-09 22:22] LABS: PTT,PARTIAL THROMBOPLSTIN TIME 27.1 SECONDS (21.7-31.4)
[2024-09-09 22:25] LABS: A/G RATIO 0.9 (1-2); ALANINE AMINOTRANSFERASE,ALT 29 U/L (14-59); ALBUMIN 3.1 g/dl (3.4-5.0); ALKALINE PHOSPHATASE 79 U/L (46-116); ANION GAP 9.8 (5-15); ASPARTATE AMNIOTRANSFERASE,AST 26 U/L (15-37); BILIRUBIN TOTAL 0.2 mg/dL (0.2-1.0); BLOOD UREA NITROGEN,BUN 17 mg/dL (7-18); BUN/CREATININE RATIO 18.9 (14-18); CALCIUM 8.6 mg/dL (8.5-10.1); CARBON DIOXIDE,CO2 29 mEq/L (21-32); CHLORIDE,CL 104 mEq/L (98-107); CREATININE 0.9 mg/dL (0.55-1.02); ESTIMATED GFR 80 mL/min (>60); GLUCOSE RANDOM 91 mg/dL (70-99); MAGNESIUM 1.8 mg/dL (1.8-2.4); POTASSIUM,K 3.8 mEq/L (3.5-5.1); PROTEIN TOTAL,TP 6.6 g/dl (6.4-8.2); SODIUM,NA 139 mEq/L (136-145)
[2024-09-09 22:26] LABS: TROPONIN I HIGH SENSITIVITY < 4 pg/mL (<=51)
[2024-09-09] MEDS: Sodium Chloride 0.9% 500 ML IV ONE (22:26)
[2024-09-09] MEDS ORDERED: Iopamidol 755 Mg/ML 100 ML Bottle IVPUSH ONE (23:28)
[2024-09-10 00:11] LABS: APPEARANCE,URINE TURBID (Clear); BILIRUBIN,URINE NEGATIVE (Negative); COLOR,URINE YELLOW (Yellow); GLUCOSE,URINE NEGATIVE (Negative); KETONES,URINE NEGATIVE (Negative); LEUKOCYTE ESTERASE,URINE NEGATIVE (Negative); NITRITE,URINE NEGATIVE (Negative); OCCULT BLOOD,URINE NEGATIVE (Negative); PROTEIN,URINE NEGATIVE (Negative); UROBILINOGEN,URINE 0.2 (0.2-1.0)
[2024-09-10 00:23] LABS: BARBITURATE SCREEN,URINE NEGATIVE (CUTOFF=200); BENZODIAZEPINES SCREEN,URINE NEGATIVE (CUTOFF=150); BUPRENORPHINE SCREEN,URINE NEGATIVE (CUTOFF=10); METHADONE SCREEN, URINE NEGATIVE (CUTOFF=200); METHAMPHETAMINES SCREEN, URINE PRESUMPTIVE POSITIVE (CUTOFF=500); OXYCODONE SCREEN,URINE NEGATIVE (CUT0FF=100); THC SCREEN,URINE 20 NG/ML NEGATIVE (CUTOFF=50)
[2024-09-10 00:32] LABS: AMPHETAMINES SCREEN, URINE PRESUMPTIVE POSITIVE (CUTOFF=500)
== END 2024-09-10 03:17 ==
LOC: JD.ED 20:47
DX: R07.9 Chest pain, unspecified (principal); R20.2 Paresthesia of skin; R05.9 Cough, unspecified; Z86.16 Personal history of COVID-19; Z90.49 Acquired absence of other specified parts of digestive tract; Z79.899 Other long term (current) drug therapy; Z79.82 Long term (current) use of aspirin; Z79.891 Long term (current) use of opiate analgesic; Z79.2 Long term (current) use of antibiotics; Z88.8 Allergy status to other drugs, medicaments and biological substances; Z88.5 Allergy status to narcotic agent
CPT/HCPCS: 36415; 70450; 71045; 80053; 80306; 80307; 81003; 82947; 83735; 84484; 84703; 85025; 85610; 85730; 87428; 93005; 96360; 96361; 99285; J7030